=== PATIENT | male | born 1945 | race Caucasian/White ===

== ENCOUNTER → 2018-01-16 | Outpatient (CLI) | payer MEDICARE, BC, OTHER ==
--- NOTE | 2018-01-16 13:43 | XR ---
EXAMINATION TYPE: XR chest 2V DATE OF EXAM: 01/16/2018 COMPARISON: NONE TECHNIQUE: PA and lateral views submitted. HISTORY: Preop FINDINGS: The lungs are clear and there is no pneumothorax, pleural effusion, or focal pneumonia. Hypertrophi c and degenerative change of the vertebral column. No overt failure. IMPRESSION: 1. No acute process.
[2018-01-16 13:47] LABS: INR 1.2 (<1.2); Partial Thromboplastin Time 23.9 sec (22.0-30.0); Prothrombin Time 11.4 sec (9.0-12.0)
[2018-01-16 13:48] LABS: Appearance,Urine Clear (Clear); Bilirubin,Urine Negative (Negative); Blood,Urine Negative (Negative); Color,Urine Yellow; Glucose,Urine (UA) Negative (Negative); Ketones,Urine Negative (Negative); Leukocyte Esterase,Urine Negative (Negative); Nitrite,Urine Negative (Negative); Protein,Urine Negative (Negative); Specific Gravity,Urine 1.015 (1.001-1.035); Urobilinogen,Urine <2.0 mg/dL (<2.0)
[2018-01-16 13:50] LABS: Basophils # (A) 0.1 k/uL (0-0.2); Basophils % (A) 1 %; Eosinophils # (A) 0.1 k/uL (0-0.7); Eosinophils % (A) 2 %; HCT 45.1 % (39.0-53.0); HGB 14.9 gm/dL (13.0-17.5); Lymphocytes % (A) 19 %; MCH 31.9 pg (25.0-35.0); MCV 96.8 fL (80.0-100.0); Mean Platelet Volume 7.5; Monocytes # (A) 0.3 k/uL (0-1.0); Monocytes % (A) 6 %; Neutrophils # (A) 3.5 k/uL (1.3-7.7); Neutrophils % (A) 70 %; Platelet Count 249 k/uL (150-450); RBC 4.66 m/uL (4.30-5.90); RDW 12.7 % (11.5-15.5)
[2018-01-16 13:54] LABS: Anion Gap 4 mmol/L; Blood Urea Nitrogen 19 mg/dL (9-20); Calcium 9.5 mg/dL (8.4-10.2); Carbon Dioxide 30 mmol/L (22-30); Chloride 106 mmol/L (98-107); Glucose 90 mg/dL (74-99); Potassium 4.7 mmol/L (3.5-5.1); Sodium 140 mmol/L (137-145)
== END ==
LOC: LABPAT 12:34
PROVIDERS: ATTEND Orthopaedic Surgery Orthopaedic Surgery of the Spine
DX: Z01.818 Encounter for other preprocedural examination (principal); Z01.812 Encounter for preprocedural laboratory examination; M48.02 Spinal stenosis, cervical region; G95.89 Other specified diseases of spinal cord
CPT/HCPCS: 36415; 71046; 80048; 81003; 85025; 85610; 85730; 86850; 86900; 86901; 93005

== ENCOUNTER 2018-01-22 12:15 | Inpatient (IN) | payer MEDICARE, BC ==
[~2018-01-22 12:15] MED LIST: BACITRACIN 50,000 UNIT, POLYMYXIN B 500,000 UNIT in SODIUM CHLORIDE 0.9% IRRIGATIO 1,00... IRRIGATION ONE; DEXAMETHASONE SOD PHOSPHATE 10 MG/ML 1 ML VIAL IV ONE; LIDOCAINE 1% 20 ML VIAL (10MG/ML) FOR IV START INTRADERMA PRN; MIDAZOLAM 2 MG/2 ML VIAL IV PRN; ONDANSETRON 4 MG/2 ML VIAL IVP ONE; ceFAZolin IN SWFI 2 GM/20 ML SYRINGE IVP ONE; fentaNYL (PF) 50 MCG/ML 2 ML AMP IV PRN
[2018-01-22] MEDS: LACTATED RINGERS 1,000 ML IV SCH ×2 (13:33→22:35)
[2018-01-22 13:41] LABS: Glucose,Whole Blood 96 mg/dL (75-99)
[2018-01-22] MEDS ORDERED: PROPOFOL 10 MG/ML 20 ML VIAL IV ONE (15:38)
[2018-01-22] MEDS ORDERED: ePHEDrine SULFATE/0.9% NACL/PF 50 MG/5 ML SYRINGE IV ONE (15:38)
[2018-01-22] MEDS ORDERED: LIDOCAINE 1% INJ 10MG/ML (20 ML MDV) ONE (15:38)
[2018-01-22] MEDS ORDERED: fentaNYL (PF) 50 MCG/ML 2 ML AMP ONE (15:38)
[2018-01-22] MEDS ORDERED: SUCCINYLCHOLINE CHLORIDE 100 MG/5 ML SYR IV ONE (15:38)
[2018-01-22] MEDS ORDERED: DEXAMETHASONE SOD PHOS (MDV) 100 MG/10 ML VIAL ONE (15:38)
[2018-01-22] MEDS ORDERED: MIDAZOLAM 2 MG/2 ML VIAL ONE (15:38)
[2018-01-22] MEDS ORDERED: LIDOCAINE 0.5%-EPI 1:200,000 50 ML VIAL SQ ONE ×2 (16:30)
[2018-01-22] MEDS ORDERED: THROMBIN (BOVINE) 5,000 UNIT VIAL MISCELLANE ONE (16:35)
[2018-01-22] MEDS ORDERED: GELATIN SPONGE,ABSORB (LARGE) 1 EACH SPONGE MISCELLANE ONE (16:35)
[2018-01-22] MEDS ORDERED: LACTATED RINGERS 1,000 ML IV ONE (17:53)
[2018-01-22] MEDS ORDERED: MAGNESIUM HYDROXIDE 2,400 MG/10 ML CUP PO PRN (18:00)
[2018-01-22] MEDS ORDERED: BENZOCAINE/MENTHOL LOZENG 1 EACH LOZENGE MUCOUS MEM PRN (18:00)
[2018-01-22] MEDS ORDERED: HYDROmorphone 1 MG/ML 1 ML SYRINGE IVP PRN (18:00)
[2018-01-22] MEDS ORDERED: ACETAMINOPHEN TAB 325 MG TAB PO PRN (18:00)
[2018-01-22] MEDS ORDERED: ONDANSETRON 4 MG/2 ML VIAL IVP PRN (18:00)
--- NOTE | 2018-01-22 18:08 | P.OP ---
Date of Procedure: 01/22/18 Preoperative Diagnosis: Cervical myelopathy with central cord syndrome Cervical myelomalacia Severe cervical stenosis C3 4 Cervical stenosis C4 5 Degenerative disc disease Bilateral upper extremity weakness Gait dysfunction due to cervical myelopathy Postoperative Diagnosis: Same Anesthesia: GETA Pathology: none sent Condition: stable Disposition: PACU Description of Procedure: BRIEF OPERATIVE NOTE Preoperative Diagnosis:Cervical myelopathy with central cord syndrome Cervical myelomalacia Severe cervical stenosis C3 4 Cervical stenosis C4 5 Degenerative disc disease Bilateral upper extremity weakness Gait dysfunction due to cervical myelopathy Postoperative Diagnosis: Same Procedure: Anterior cervical decompression with discectomy and fusion C3 4 C4 5 Placement of interbody graft C3 4 C4 5 Application of anterior cervical plate C3 4 5 Surgeon: Dr. Ash Clinical Project Assistant: Danny ZULUAGA who is present throughout the entire the case persistence during positioning, dissection, exposure, visualization, and all crucial elements of the case as well as closure. Anesthesia: General anesthesia Estimated blood loss: 100 mL Complications: None apparent Components implanted: K2M [place] anterior cervical plate system with 6 screws and Vikos interbody allograft bone graft, 1 mL of DBX bone putty supplement the bone graft and 1 mL of Tisseel Disposition: To recovery room in good stable condition. OPERATIVE INDICATIONS The patient has had long-standing issues in their neck and upper extremities. He was having acute worsening at his upper extremities and with his gait and showed evidence of acute myelopathy and cervical myelomalacia with central cord syndrome. He is having significant weakness and dysfunction in his bilateral hands and significant gait dysfunction as well trouble with his balance and coordination in function in his upper extremities bilaterally. The patient has been through conservative treatment without any benefit. He is having progressive worsening and was found have obvious severe stenosis at C3 4 and stenosis C4 5 with degenerative changes C5 6 and C6 7. There is evidence of myelomalacia behind C3 4 which correlated well with his symptoms. We discussed various treatment options including surgery, and the patient wishes to proceed with surgery. We discussed the likelihood of having chronic changes in his upper and lower extremities and chronic changes with his myelopathy. We discussed the risk, patient's alternatives and benefits of surgery including but not limited to, risk of bleeding risk of infection, risk of need for further surgery, risk of decreased, loss of motion, muscle function, malunion nonunion, hardware failure, nerve damage, paralysis, heart attack, and . OPERATIVE SUMMARY After discussing all the risks, patient alternatives and benefits at length, the patient elected to proceed with surgical intervention, signed informed consent, and presented for their procedure. The patient was seen and examined in the preoperative holding area and the surgical site was marked. The patient was given antibiotics and brought to the operating room. The patient was positioned on the operating room table in a supine position being careful to pad any bony prominences and pressure points. The patient was sedated and intubated by anesthesia in standard fashion. Once the airway and C- spine were stabilized the patient's arms were padded and tucked at her side, with her shoulders gently taped. The head was placed in a donut pad with the neck in good neutral alignment and position. We were careful to maintain the patient's cervical spine and good neutral alignment and position throughout. The patient was prepped and draped in a normal standard fashion. An appropriate timeout and keystone protocol performed. We were able to proceed with the surgery. The local wound area was infiltrated with local anesthetic. An incision was made transversely approximately 2-1/2 cm over the appropriate levels at C4. Dissection was taken down subcutaneously to the level of the platysma which was split in line with its fibers. Dissection was taken with a carotid approach, with the trachea and esophagus medial and the carotid sheath laterally. We dissected down to the anterior surface of the vertebral bodies at C5 3 4 and 5. Intraoperative x-ray was taken which showed a marker at the appropriate level at C3 4. With the appropriate level positively confirmed, we were able to proceed with discectomy at the appropriate levels starting at C3 4 and then moving C4 5. All of the operative levels were exposed appropriately. The patient had all their twitches back, and there was no evidence of recurrent laryngeal issue. The wound was copiously irrigated and suctioned dry as had been done periodically throughout the case. At the appropriate level/levels, I established an annulotomy with an 11 blade scalpel. A discectomy was performed with a combination of pituitary rongeurs, curettes, a high-speed bur, and Kerrison rongeurs. The posterior longitudinal ligament was taken down as were any posterior osteophytes. There is evidence of severe posterior osteophytes and posterior disc protrusion causing severe stenosis particularly at C3 4 but also at C4 5 centrally in the bilateral neural foramen. This was taken down and remedied with the decompression and discectomy. This gave good central and bilateral foraminal decompression. There is no evidence of any dural tear or leak. There is a small abrasion less than 1 mm at C4-5 over the dura mater without any evidence of leakage. I decided place a small amount of Tisseel over this. The endplates were prepared with a high-speed bur. With the endplates in good parallel position, I was able to size for the appropriate size interbody graft. The wound was irrigated and suctioned dry the graft was prepared and malleted into position. It had good alignment and position with the anterior surface flush with the anterior surface of the vertebral bodies. This was done similarly the appropriate levels at C3 4 and C4 5. With the grafts intact, I was able to measure and contour and appropriate sized plate. The plate was positioned at the midline over the appropriate levels at C3 4 and 5. Screw holes were established with a hand drill and drill guide. Screws were placed in good alignment and position with excellent bony purchase. They were seated under the locking device. The construct was checked and found to be stable. Intraoperative x-ray was taken which showed good alignment and position of the implants at the appropriate levels. There was no evidence of any dural tear or leak. Good hemostasis was maintained. The wound was copiously irrigated and suctioned dry as had been done periodically throughout the case. The platysma was closed with absorbable suture. The subcutaneous tissue was closed. The subcuticular tissue was closed with absorbable suture. The wound was cleaned and dried and dressed appropriately. A soft cervical collar was placed appropriately. The patient was woken up by anesthesia, extubated, transferred back gently to their hospital bed and brought to the recovery room in good stable condition. The patient will be admitted to the hospital for appropriate postoperative care , medical management and monitoring. We will continue to follow them closely about the postoperative course.
[2018-01-22] MEDS: HYDROmorphone 0.5 MG/0.5 ML SYRINGE IVP PRN ×2 (18:32→18:39)
--- NOTE | 2018-01-22 19:02 | XR ---
EXAMINATION TYPE: XR cervical spine 1V DATE OF EXAM: 01/22/2018 COMPARISON: Today HISTORY: Postop TECHNIQUE: Single view FINDINGS: There is a plate with screws fusing anteriorly the cervical spine from C3 to C5. There is b one graft at the disc spaces. Vertebra have normal alignment. IMPRESSION: No complicating process seen.
--- NOTE | 2018-01-22 19:03 | XR ---
EXAMINATION TYPE: XR cervical spine 1V DATE OF EXAM: 01/22/2018 COMPARISON: NONE HISTORY: Needle placement TECHNIQUE: Single view FINDINGS: There is a needle with the tip overlying the disc space at C3-4. IMPRESSION: Needle at the C3-4 disc level.
[2018-01-22] MEDS: HYDROcodone/APAP 5-325MG 1 EACH TAB PO PRN (20:46)
[2018-01-22 21:47] VITALS: BMI 27.0
[2018-01-22] MEDS: ceFAZolin IN SWFI 2 GM/20 ML SYRINGE IVP SCH (23:35)
[2018-01-22] MEDS: SODIUM CHLORIDE 0.9% 1,000 ML IV SCH (23:39)
[2018-01-23 00:09] VITALS: TEMP 98.1
[2018-01-23 04:51] VITALS: BP 101/50; PULSE 62
[2018-01-23] MEDS: HYDROcodone/APAP 5-325MG 1 EACH TAB PO PRN (07:37)
[2018-01-23] MEDS: SODIUM CHLORIDE 0.9% 1,000 ML IV SCH (08:25)
[2018-01-23] MEDS: ceFAZolin IN SWFI 2 GM/20 ML SYRINGE IVP SCH (08:29)
--- NOTE | 2018-01-23 08:43 | P.DS ---
Providers Date of admission: 01/22/18 12:45 Expected date of discharge: 01/23/18 Attending physician: Tylor Ash Primary care physician: Noe Benson MD - Discharge Diagnosis(es) (1) Central cord syndrome Current Visit: Yes Status: Acute (2) Cervical cord myelomalacia Current Visit: Yes Status: Acute (3) Cervical spinal stenosis Current Visit: Yes Status: Acute (4) Degenerative disc disease, cervical Current Visit: Yes Status: Acute (5) Upper extremity weakness Current Visit: Yes Status: Acute (6) Cervical myelopathy Current Visit: Yes Status: Acute Hospital Course: This is a pleasant 73-year-old male who presented with cervical myelopathy with central cord syndrome, cervical myelomalacia, C3-4 severe cervical stenosis, C4- 5 cervical stenosis, cervical degenerative disc disease, bilateral upper extremity weakness, and gait dysfunction due to cervical myelopathy who failed outpatient conservative therapy. He was admitted for an anterior cervical decompression and fusion at C3 S4 and C4-5. The patient tolerated the procedure well and did well postoperatively. His family states they feel he has had better function of his hands already postoperatively. He is experiencing significant cervical pain. He does feel he is ready for discharge home. He was able to eat this morning without significant difficulty. Condition on day of discharge stable. Patient will be discharged home. Patient was cleared preoperatively for surgery by Dr. Noe Benson. Patient currently denies any nausea, vomiting, fever, or chills. Patient is eating and voiding freely without difficulty. Patient may shower Tegaderm dressing intact. Patient may remove Tegaderm dressing in 3 days and shower without a dressing at that time. Patient should keep Steri-Strips intact and allow them to fall off naturally. Patient should refrain from driving until at least after their first follow-up appointment in the office. Patient should avoid excessive neck flexion, extension, rotation, and lateral sidebending; no overhead lifting; no lifting greater than 10 pounds. Wear a soft cervical collar for comfort support as needed. An "Opiod Start Talking" form has been signed by Dr. Ash and the patient and placed in the patient's chart. A prescription for [place] 5 mg/325 mg 1-2 tabs every 6 hours as needed for pain, dispensed #24 has been transcribed to the pharmacy by Dr. Ash. Patient may finish previous prescribed prednisone taper but should avoid other anti- inflammatories over the next 6 weeks postoperatively. Physical Exam on day of discharge: Patient is awake, alert, and oriented 3 Vital signs stable Good chest excursion with deep inspiration and expiration Abdomen soft nontender No signs or symptoms of DVT; no calf pain Active range of motion of the cervical spine with adequate flexion, extension, and bilateral rotation Regulatory Attorney strength, biceps strength, triceps strength, and shoulder strength positive sustained bilaterally Evidence of myelopathic changes of the upper extremities Incision is clean, dry, and intact; no erythema, purulence, or signs of infection Tegaderm dressing and non-stick Telfa intact Procedures: C3-4 and C4-5 anterior cervical decompression and fusion Patient Condition at Discharge: Stable Plan - Discharge Summary Discharge Rx Participant: No New Discharge Prescriptions: New HYDROcodone/APAP 5-325MG [[place] 5] 1 - 2 each PO Q6HR PRN #24 tab PRN Reason: Severe Pain No Action Multivitamin [Men's Multi-Vitamin] 1 tab PO DAILY predniSONE 20 mg PO DIRECTED Aspirin [Adult Low Dose Aspirin EC] 81 mg PO DAILY Discharge Medication List Multivitamin [Men's Multi-Vitamin] 1 tab PO DAILY 05/01/15 [History] Aspirin [Adult Low Dose Aspirin EC] 81 mg PO DAILY 01/18/18 [History] predniSONE 20 mg PO DIRECTED 01/18/18 [History] HYDROcodone/APAP 5-325MG [[place] 5] 1 - 2 each PO Q6HR PRN #24 tab 01/22/18 [Rx] Follow up Appointment(s)/Referral(s): Tylor Ash DO [Doctor of Osteopathic Medicine] - 2 Weeks Patient Instructions/Handouts: *Surgery [facility] - ([facility]) Cervical Surgery Discharge Instructions, Hydrocodone/Acetaminophen (By mouth), Surgical Site Infections (DC) Activity/Diet/Wound Care/Special Instructions: -Keep wound site clean. -May shower with waterproof Tegaderm intact. Do not soak in a tub. -On Monday, may remove dressing and then may shower with area uncovered, but leave Steri-Strips intact and allow them to fray off on their own. *May ambulate to tolerance. *Avoid any overhead activity *Avoid any heavy or rigorous activity *No repetitive bending, twisting or lifting. *No lifting greater than 15 pounds. Discharge Disposition: HOME SELF-CARE
[2018-01-23] MEDS: LACTATED RINGERS 1,000 ML IV SCH (08:47)
[2018-01-23] MEDS ORDERED: ASPIRIN 81 MG PO SCH (09:00)
[2018-01-23] MEDS ORDERED: predniSONE 20 MG TAB PO SCH (09:00)
[2018-01-23 10:26] VITALS: RESP 18
[2018-01-23] MEDS ORDERED: MULTIVITAMINS, THERA 1 EACH TAB PO SCH (12:00)
--- NOTE | 2018-01-26 15:25 | CDI ---
Documentation Clarification Form Date: 01/26/2018 3:07:22 PM From: CARROLL Gaffney; Hortensia Barillas Geophysicist Phone: If you have a question about this query, please contact Hortensia Barillas Geophysicist at [phone] between 8am and 5pm. Admit Date: 01/22/2018 12:45:00 PM Patient Name: Mor Cabrera Visit Number: [id number] Discharge Date: 01/23/2018 ATTENTION: The Clinical Documentation Specialists (CDI) and [facility] Coding Staff appreciate your assistance in clarifying documentation. Please respond to the clarification below the line at the bottom and electronically sign. The CDI & [facility] Coding staff will review the response and follow-up if needed. Please note: Queries are made part of the Legal Health Record. If you have any questions, please contact the author of this message via ITS. Tylor Thompson., DO The patient presents for cervical spinal fusion. Preoperative diagnosis is cervical myelopathy with central cord syndrome. Central cord syndrome requires further clarification for accurate code assignment. In your professional opinion, can you please clarify ? Central cord syndrome is associated with current trauma? Central cord syndrome nontraumatic Posterior cord Anterior cord Other, please specify Unable to determine the patient shows signs and symptoms of central cord syndrome, nontraumatic. MTDD
== END 2018-01-23 10:05 | disposition home or self-care (01) | DRG 472 ==
LOC: 2ORMAIN 12:45 → 3NMEDONC 18:15
PROVIDERS: ADMIT Orthopaedic Surgery Orthopaedic Surgery of the Spine; ATTEND Orthopaedic Surgery Orthopaedic Surgery of the Spine
PROC: 0RB30ZZ Excision of Cervical Vertebral Disc, Open Approach (ICD-10-PCS; principal; 2018-01-22 14:45)
PROC: 0RG20K0 Fusion of 2 or more Cervical Vertebral Joints with Nonautologous Tissue Substitute, Anterior Approach, Anterior Column, Open Approach (ICD-10-PCS; principal; 2018-01-22 14:45)
DX: M50.01 Cervical disc disorder with myelopathy, high cervical region (principal); G95.89 Other specified diseases of spinal cord; G83.82 Anterior cord syndrome; M48.02 Spinal stenosis, cervical region; Z79.82 Long term (current) use of aspirin; M50.11 Cervical disc disorder with radiculopathy, high cervical region
CPT/HCPCS: 72020; 86850; 86900; 86901

== ENCOUNTER 2018-01-24 07:07 | Emergency (ER) | payer MEDICARE, BC ==
[2018-01-24 07:14] VITALS: TEMP 98.2
[2018-01-24] MEDS ORDERED: DEXAMETHASONE SOD PHOSPHATE 10 MG/ML 1 ML VIAL IV STA (07:37)
[2018-01-24] MEDS ORDERED: SODIUM CHLORIDE 0.9% 1,000 ML IV STA (07:37)
[2018-01-24 08:00] LABS: Basophils % (A) 0 %; Eosinophils # (A) 0.1 k/uL (0-0.7); Eosinophils % (A) 1 %; HCT 41.5 % (39.0-53.0); Lymphocytes # (A) 1.6 k/uL (1.0-4.8); Lymphocytes % (A) 16 %; MCH 32.5 pg (25.0-35.0); MCHC 33.6 g/dL (31.0-37.0); MCV 96.6 fL (80.0-100.0); Mean Platelet Volume 7.6; Monocytes # (A) 0.9 k/uL (0-1.0); Monocytes % (A) 9 %; Neutrophils # (A) 7.5 k/uL (1.3-7.7); Neutrophils % (A) 73 %; Platelet Count 226 k/uL (150-450); RDW 12.9 % (11.5-15.5); WBC 10.3 k/uL (3.8-10.6)
[2018-01-24] MEDS ORDERED: BUDESONIDE 0.5 MG/2 ML NEBU INHALATION STA (08:10)
[2018-01-24 08:19] LABS: ALT 25 U/L (21-72); AST 18 U/L (17-59); Albumin 3.4 g/dL (3.5-5.0); Alkaline Phosphatase 54 U/L (38-126); Anion Gap 6 mmol/L; Blood Urea Nitrogen 27 mg/dL (9-20); Calcium 9.1 mg/dL (8.4-10.2); Carbon Dioxide 28 mmol/L (22-30); Chloride 105 mmol/L (98-107); Glucose 91 mg/dL (74-99); Potassium 4.2 mmol/L (3.5-5.1); Sodium 139 mmol/L (137-145); Total Bilirubin 0.8 mg/dL (0.2-1.3); Total Protein 6.1 g/dL (6.3-8.2)
--- NOTE | 2018-01-24 08:21 | XR ---
EXAMINATION TYPE: XR chest 2V DATE OF EXAM: 01/24/2018 COMPARISON: Prior chest x-ray 01/16/2018 HISTORY: Difficulty breathing TECHNIQUE: Frontal and lateral views of the chest are obtained. FINDINGS: There are overlying cardiac leads. Cardiomediastinal silhouette, pulmonary vascularity and zulema are stable. No evident airspace disease, pneumothorax, or pleural effusion. Strand-like densiti es present at the posterior right lung base show similar appearance. Eventration of the hemidiaphragm s again noted. Suspect a mild pectus deformity. Aorta is dense. Spondylosis again noted within the sp ine. IMPRESSION: Suspect some basilar scarring or atelectasis, stable.
--- NOTE | 2018-01-24 08:23 | XR ---
Soft tissue neck HISTORY: Difficulty breathing 2 views of the neck Patient shows anterior cervical fusion and discectomy change at C3-C5. Below spondylosis is present. Bone mineralization is reduced. The airway is patent. Epiglottis shows a normal appearance in profile. No radiopaque foreign body geneva dent along the airway. Facet arthropathy changes are present. IMPRESSION: Degenerative disc disease. Patent airway.
[2018-01-24 08:31] LABS: Creatine Kinase 104 U/L (55-170)
--- NOTE | 2018-01-24 08:43 | ED ---
SOB HPI - General Chief Complaint: Shortness of Breath Stated Complaint: PALAK Time Seen by Provider: 01/24/18 07:14 Source: patient, RN notes reviewed, old records reviewed Mode of arrival: wheelchair Limitations: physical limitation - History of Present Illness Initial Comments: This is a 71-year-old male to the ER for evaluation of shortness of breath. Patient has shortness of breath and trying to sleep the last 2 days. He does have underlying sleep apnea, and history of recent cervical spine surgery with discectomy. Patient states he feels agrees lays down to sleep at night he can' t breathe and he chokes on his own mucus and secretions. Patient denies any chest pain, patient denies any current shortness of breath MD Complaint: shortness of breath, cough, anxiety -: days(s) (2) Improves With: upright position Worsens With: lying flat Associated Symptoms: cough - Related Data Home Medications Medication Instructions Recorded Confirmed Multivitamin [Men's Multi-Vitamin] 1 tab PO DAILY 05/01/15 01/24/18 Aspirin [Adult Low Dose Aspirin EC] 81 mg PO DAILY 01/18/18 01/24/18 predniSONE See Taper PO DIRECTED 01/18/18 01/24/18 HYDROcodone/APAP 5-325MG [[place] 5] 1 - 2 tab PO Q6HR PRN 01/24/18 01/24/18 Allergies Allergy/AdvReac Type Severity Reaction Status Date / Time No Known Allergies Allergy Verified 01/24/18 07:38 Review of Systems ROS Statement: Those systems with pertinent positive or pertinent negative responses have been documented in the HPI. ROS Other: All systems not noted in ROS Statement are negative. Past Medical History Past Medical History: Osteoarthritis (OA), Sleep Apnea/CPAP/BIPAP Additional Past Medical History / Comment(s): "HX MITRAL VALVE malfunctioning." HX RETINA TEAR, "slight sleep apnea"- no cpap used, degenerative disks, spinal stenosis,, History of Any Multi-Drug Resistant Organisms: None Reported Past Surgical History: Heart Catheterization, Hernia Repair, Orthopedic Surgery , Tonsillectomy Additional Past Surgical History / Comment(s): RT RETINA REPAIR. trigger finger deandre hands, rt knee arthroscopy, carpal tunnel deandre, deandre cataracts, C3-C6 removed, Past Anesthesia/Blood Transfusion Reactions: No Reported Reaction Past Psychological History: No Psychological Hx Reported Smoking Status: Never smoker Past Alcohol Use History: Rare Past Drug Use History: None Reported - Past Family History Mother Family Medical History: No Reported History Additional Family Medical History / Comment(s): . General Exam Limitations: physical limitation General appearance: alert, in no apparent distress Head exam: Present: atraumatic, normocephalic, normal inspection Eye exam: Present: normal appearance, PERRL, EOMI. Absent: scleral icterus, conjunctival injection, periorbital swelling ENT exam: Present: normal exam, mucous membranes moist Neck exam: Present: normal inspection. Absent: tenderness, meningismus, lymphadenopathy Respiratory exam: Present: normal lung sounds bilaterally. Absent: respiratory distress, wheezes, rales, rhonchi, stridor Cardiovascular Exam: Present: regular rate, normal rhythm, normal heart sounds. Absent: systolic murmur, diastolic murmur, rubs, gallop, clicks GI/Abdominal exam: Present: soft, normal bowel sounds. Absent: distended, tenderness, guarding, rebound, rigid Extremities exam: Present: normal inspection, full ROM, normal capillary refill. Absent: tenderness, pedal edema, joint swelling, calf tenderness Back exam: Present: normal inspection Neurological exam: Present: alert, oriented X3, CN II-XII intact Psychiatric exam: Present: normal affect, normal mood Skin exam: Present: warm, dry, intact, normal color. Absent: rash Course Vital Signs 01/24/18 01/24/18 01/24/18 07:11 07:30 07:40 Temperature 98.2 F Pulse Rate 73 61 Respiratory 20 42 H Rate Blood Pressure 111/61 115/74 O2 Sat by Pulse 97 99 Oximetry 01/24/18 01/24/18 01/24/18 07:50 08:00 08:19 Temperature Pulse Rate 56 L 58 L 56 L Respiratory 10 L 13 14 Rate Blood Pressure 118/101 118/101 O2 Sat by Pulse 97 Oximetry 01/24/18 01/24/18 01/24/18 08:20 08:22 08:30 Temperature Pulse Rate 54 L 58 L 55 L Respiratory 6 L 14 8 L Rate Blood Pressure 121/102 121/102 O2 Sat by Pulse 98 95 Oximetry 01/24/18 01/24/18 01/24/18 08:40 08:50 09:00 Temperature Pulse Rate 60 60 56 L Respiratory 16 20 18 Rate Blood Pressure 125/80 113/76 113/76 O2 Sat by Pulse 93 L 94 L 93 L Oximetry 01/24/18 01/24/18 01/24/18 09:10 09:20 09:30 Temperature Pulse Rate 53 L 53 L 52 L Respiratory 14 12 14 Rate Blood Pressure 104/75 107/74 107/74 O2 Sat by Pulse 96 94 L 93 L Oximetry 01/24/18 01/24/18 01/24/18 09:40 09:50 10:00 Temperature Pulse Rate 53 L 54 L Respiratory 13 14 Rate Blood Pressure 106/73 104/67 104/67 O2 Sat by Pulse 95 95 Oximetry 01/24/18 01/24/18 01/24/18 10:10 10:20 10:30 Temperature Pulse Rate 60 61 80 Respiratory 18 6 L 9 L Rate Blood Pressure 121/96 101/75 101/75 O2 Sat by Pulse 96 96 94 L Oximetry 01/24/18 01/24/18 01/24/18 10:40 10:50 11:00 Temperature Pulse Rate 55 L 56 L 59 L Respiratory 10 L 13 7 L Rate Blood Pressure 103/75 96/70 96/70 O2 Sat by Pulse 94 L 92 L 94 L Oximetry 01/24/18 01/24/18 01/24/18 11:10 11:20 11:30 Temperature Pulse Rate 58 L 55 L 63 Respiratory 15 11 L 12 Rate Blood Pressure 105/76 105/77 105/77 O2 Sat by Pulse 95 93 L 93 L Oximetry 01/24/18 12:44 Temperature Pulse Rate 64 Respiratory 18 Rate Blood Pressure 106/75 O2 Sat by Pulse Oximetry - Reevaluation(s) Reevaluation #1: 01/24/18 13:17 Patient's medical record is reviewed Dr. Ash and associate did come and evaluate patient here in the emergency room Reevaluation #2: 01/24/18 13:18 Patient is doing improved on his normal CPAP Reevaluation #3: 01/24/18 14:08 A she was seen by Dr. Garsia here in the ER, still for discharge home with no shortness of breath laying down on CPAP Medical Decision Making - Medical Decision Making 73 female the ER for evaluation cough congestion recent operative procedure, patient having shortness of breath. Patient can be discharged home - Lab Data Result diagrams: 01/24/18 07:40 01/24/18 07:40 Lab Results 01/24/18 01/24/18 01/24/18 Range/Units 07:40 07:40 07:40 WBC 10.3 (3.8-10.6) k/uL RBC 4.30 (4.30-5.90) m/uL Hgb 14.0 (13.0-17.5) gm/dL Hct 41.5 (39.0-53.0) % MCV 96.6 (80.0-100.0) fL MCH 32.5 (25.0-35.0) pg MCHC 33.6 (31.0-37.0) g/dL RDW 12.9 (11.5-15.5) % Plt Count 226 (150-450) k/uL Neutrophils % 73 % Lymphocytes % 16 % Monocytes % 9 % Eosinophils % 1 % Basophils % 0 % Neutrophils # 7.5 (1.3-7.7) k/uL Lymphocytes # 1.6 (1.0-4.8) k/uL Monocytes # 0.9 (0-1.0) k/uL Eosinophils # 0.1 (0-0.7) k/uL Basophils # 0.0 (0-0.2) k/uL Sodium 139 (137-145) mmol/L Potassium 4.2 (3.5-5.1) mmol/L Chloride 105 (98-107) mmol/L Carbon Dioxide 28 (22-30) mmol/L Anion Gap 6 mmol/L BUN 27 H (9-20) mg/dL Creatinine 0.76 (0.66-1.25) mg/dL Est GFR (CKD-EPI)AfAm >90 (>60 ml/min/1.73 sqM) Est GFR (CKD-EPI)NonAf >90 (>60 ml/min/1.73 sqM) Glucose 91 (74-99) mg/dL Calcium 9.1 (8.4-10.2) mg/dL Magnesium 2.0 (1.6-2.3) mg/dL Total Bilirubin 0.8 (0.2-1.3) mg/dL AST 18 (17-59) U/L ALT 25 (21-72) U/L Alkaline Phosphatase 54 (38-126) U/L Total Creatine Kinase 104 (55-170) U/L CK-MB (CK-2) 3.2 H (0.0-2.4) ng/mL CK-MB (CK-2) Rel Index 3.1 Troponin I <0.012 (0.000-0.034) ng/mL NT-Pro-B Natriuret Pep pg/mL Total Protein 6.1 L (6.3-8.2) g/dL Albumin 3.4 L (3.5-5.0) g/dL 01/24/18 Range/Units 07:40 WBC (3.8-10.6) k/uL RBC (4.30-5.90) m/uL Hgb (13.0-17.5) gm/dL Hct (39.0-53.0) % MCV (80.0-100.0) fL MCH (25.0-35.0) pg MCHC (31.0-37.0) g/dL RDW (11.5-15.5) % Plt Count (150-450) k/uL Neutrophils % % Lymphocytes % % Monocytes % % Eosinophils % % Basophils % % Neutrophils # (1.3-7.7) k/uL Lymphocytes # (1.0-4.8) k/uL Monocytes # (0-1.0) k/uL Eosinophils # (0-0.7) k/uL Basophils # (0-0.2) k/uL Sodium (137-145) mmol/L Potassium (3.5-5.1) mmol/L Chloride (98-107) mmol/L Carbon Dioxide (22-30) mmol/L Anion Gap mmol/L BUN (9-20) mg/dL Creatinine (0.66-1.25) mg/dL Est GFR (CKD-EPI)AfAm (>60 ml/min/1.73 sqM) Est GFR (CKD-EPI)NonAf (>60 ml/min/1.73 sqM) Glucose (74-99) mg/dL Calcium (8.4-10.2) mg/dL Magnesium (1.6-2.3) mg/dL Total Bilirubin (0.2-1.3) mg/dL AST (17-59) U/L ALT (21-72) U/L Alkaline Phosphatase (38-126) U/L Total Creatine Kinase (55-170) U/L CK-MB (CK-2) (0.0-2.4) ng/mL CK-MB (CK-2) Rel Index Troponin I (0.000-0.034) ng/mL NT-Pro-B Natriuret Pep 236 pg/mL Total Protein (6.3-8.2) g/dL Albumin (3.5-5.0) g/dL - EKG Data -: EKG Interpreted by Me (EKG shows sinus recurred 55, VT 180, QRS 90, QTC 388) EKG shows normal: sinus rhythm Rate: bradycardia - Radiology Data Radiology results: report reviewed (S x-ray x-ray soft tissue neck is negative) , image reviewed Disposition Clinical Impression: Cervical spinal stenosis, Post-op pain Disposition: ADMITTED IP TO THIS HOSP Condition: Fair Instructions: Laryngitis (ED) Is patient prescribed a controlled substance at d/c from ED?: No Referrals: Noe Benson MD [Primary Care Provider] - 1-2 days
[2018-01-24 08:44] LABS: Creatine Kinase MB 3.2 ng/mL (0.0-2.4); Troponin I <0.012 ng/mL (0.000-0.034)
[2018-01-24] MEDS ORDERED: MORPHINE SULFATE 4 MG/ML SYRINGE IVP STA ×2 (09:00→12:37)
--- NOTE | 2018-01-24 13:10 | P.CNOR ---
History of Present Illness - [facility] Consult date: 01/24/18 Consult reason: other History of present illness: Patient's a very pleasant 73-year-old gentleman accompanied by multiple family members in the emergency room. He underwent surgical intervention with our service on Monday the for his severe cervical myelopathy and cervical stenosis. He feels that he has made good improvement in terms of his upper extremities and his ambulation and his coordination but he has had great difficulty with his breathing when he tries to lay back. He says that he is unable to sleep as he starts to get a feeling of gasping for air when he lays back. He says that he has a history of sleep apnea and has been prescribed a CPAP machine but he never uses a CPAP machine as he does not like it. He says that he was able to control his breathing for sleeping by laying on his stomach in a prone position which he is not able to do now since his surgery. He says that prior to surgery he was having trouble when laying back with the feeling of gasping for air and waking up. He says it is similar to the feelings he has now. He has a CPAP machine at home but does not use it. He denies any new changes and upper extremities or lower extremity. Denies any chest pain. He denies any fevers chills. He says he is tolerating his soft diet adequately at home. Review of Systems As per HPI he denies any chest pain. Denies any upper extremity worsening. He feels that his upper extremity surgery improved since his surgery. He feels that his legs have improved since his surgery. He is tolerating his soft diet adequately. He is not having any problems with his wound. Past Medical History Past Medical History: Osteoarthritis (OA), Sleep Apnea/CPAP/BIPAP Additional Past Medical History / Comment(s): "HX MITRAL VALVE malfunctioning." HX RETINA TEAR, "slight sleep apnea"- no cpap used, degenerative disks, spinal stenosis,, History of Any Multi-Drug Resistant Organisms: None Reported Past Surgical History: Heart Catheterization, Hernia Repair, Orthopedic Surgery , Tonsillectomy Additional Past Surgical History / Comment(s): RT RETINA REPAIR. trigger finger deandre hands, rt knee arthroscopy, carpal tunnel deandre, deandre cataracts, C3-C6 removed, Past Anesthesia/Blood Transfusion Reactions: No Reported Reaction Past Psychological History: No Psychological Hx Reported Smoking Status: Never smoker Past Alcohol Use History: Rare Past Drug Use History: None Reported - Past Family History Mother Family Medical History: No Reported History Additional Family Medical History / Comment(s): . Medications and Allergies Home Medications Medication Instructions Recorded Confirmed Type Multivitamin [Men's Multi-Vitamin] 1 tab PO DAILY 05/01/15 01/24/18 History Aspirin [Adult Low Dose Aspirin EC] 81 mg PO DAILY 01/18/18 01/24/18 History predniSONE See Taper PO DIRECTED 01/18/18 01/24/18 History HYDROcodone/APAP 5-325MG [Coeymans 5] 1 - 2 tab PO Q6HR PRN 01/24/18 01/24/18 History Allergies Allergy/AdvReac Type Severity Reaction Status Date / Time No Known Allergies Allergy Verified 01/24/18 07:38 Physical Examination Osteopathic Statement: *. No significant issues noted on an osteopathic structural exam other than those noted in the History and Physical/Consult. - C Spine: dermatomal strength & reflexes bilateral Shoulder strength: flexion: 3/5 (At his neck his incision site is clean and dry. There is no drainage there is no swelling his neck is supple and soft. There is no hematoma there is no tense mass.) Results - Labs Labs: Abnormal Lab Results - Last 24 Hours (Table) 01/24/18 01/24/18 Range/Units 07:40 07:40 BUN 27 H (9-20) mg/dL CK-MB (CK-2) 3.2 H (0.0-2.4) ng/mL Total Protein 6.1 L (6.3-8.2) g/dL Albumin 3.4 L (3.5-5.0) g/dL H & H 01/24/18 Range/Units 07:40 Hgb 14.0 (13.0-17.5) gm/dL Hct 41.5 (39.0-53.0) % Result Diagrams: 01/24/18 07:40 01/24/18 07:40 - Diagnostic results Cervical AP/lateral x-ray: report reviewed, image reviewed (X-rays of the cervical spine show a anterior cervical plate and interbody spacers at C3 4 and 5 in good alignment and good position. There is been no change since his surgical imaging. He does have disc degeneration C5 6 C6 7. This is stable.) Assessment and Plan Assessment: Sleep apnea shortness of breath. 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 He was able to circumvent these type of issue before his surgery as he was able to lay on his stomach but it is not available for him to lay on his stomach at this point with his recent cervical fusion. I think that he should try his CPAP machine which he will use family will obtain from home to see if this is adequate for him here in the emergency room. I do not think that he is probably having problems with his wound site or with swelling around his wound site. He has some mild soft tissue swelling but this is not causing his shortness of breath specifically. The hardware remains stable. I think that is if he does well with his CPAP machine in the emergency middle be okay for him be discharged home with close follow-up. His myelopathy appears to be improving to some degree with his surgery and I think he should continue his medication and regular local wound care and plan for follow-up with our service as scheduled and possibly 1-2 weeks.
[2018-01-24 14:27] VITALS: BP 116/66; PULSE 57; RESP 15
== END 2018-01-24 14:20 | disposition other institution (70) ==
LOC: EC 07:07
DX: M48.02 Spinal stenosis, cervical region (principal); G89.18 Other acute postprocedural pain; F41.9 Anxiety disorder, unspecified; R06.02 Shortness of breath; R05 Cough; G47.30 Sleep apnea, unspecified; Z99.89 Dependence on other enabling machines and devices; Z86.79 Personal history of other diseases of the circulatory system; Z98.890 Other specified postprocedural states; Z95.818 Presence of other cardiac implants and grafts; Z79.82 Long term (current) use of aspirin; Z79.52 Long term (current) use of systemic steroids
CPT/HCPCS: 36415; 94640; 93005; 83880; 80053; 82550; 82553; 83735; 84484; 85025; 70360; 71046; 99285; 96374; 96375; 96376; 96361 ×6; J2270; J1100

== ENCOUNTER 2021-09-07 09:58 | Day surgery (SDC) | payer MEDICARE ==
[2021-09-06 13:19] VITALS: BMI 26.5
[~2021-09-07 09:58] MED LIST changes: -BACITRACIN 50,000 UNIT, POLYMYXIN B 500,000 UNIT in SODIUM CHLORIDE 0.9% IRRIGATIO 1,00... IRRIGATION ONE; -DEXAMETHASONE SOD PHOSPHATE 10 MG/ML 1 ML VIAL IV ONE; +LACTATED RINGERS 1,000 ML IV SCH; +LIDOCAINE 1% (10MG/ML) FOR IV START INTRADERMA PRN; -LIDOCAINE 1% 20 ML VIAL (10MG/ML) FOR IV START INTRADERMA PRN; -MIDAZOLAM 2 MG/2 ML VIAL IV PRN; -ONDANSETRON 4 MG/2 ML VIAL IVP ONE; -ceFAZolin IN SWFI 2 GM/20 ML SYRINGE IVP ONE; -fentaNYL (PF) 50 MCG/ML 2 ML AMP IV PRN
[2021-09-07 10:51] VITALS: RESP 16; TEMP 97.7
[2021-09-07] MEDS ORDERED: PROPOFOL 10 MG/ML 20 ML VIAL IV ONE (11:44)
--- NOTE | 2021-09-07 12:04 | P.PCN ---
Date of Procedure: 09/07/21 Procedure(s) Performed: BRIEF HISTORY: Patient is a 76-year-old pleasant white male scheduled for an elective colonoscopy as a part of screening for colorectal neoplasia. Last colonoscopy was 10 years ago. PROCEDURE PERFORMED: Colonoscopy. PREOPERATIVE DIAGNOSIS: Screening for colon cancer. IV sedation per Anesthesia. PROCEDURE: After informed consent was obtained, the patient, was brought into the endoscopy unit. IV sedation was administered by Anesthesia under continuous monitoring. Digital rectal examination was normal. Initially the Olympus CF-160 flexible video colonoscope was then inserted in the rectum, gradually advanced into the cecum without any difficulty. Careful examination was performed as the scope was gradually being withdrawn. Ileocecal valve and the appendiceal orifice were visualized and appeared normal. Prep was fair. Mucosa of the cecum, ascending colon, transverse colon, descending colon, sigmoid colon, and rectum appeared normal. Retroflexion was performed in the rectum and monitor hemorrhoids were seen. Scattered sigmoid diverticulosis seen. The patient to lerated the procedure well. IMPRESSION: Normal-appearing colon from rectum to cecum no evidence of colorectal neoplasia. Scattered sigmoid diverticulosis small internal hemorrhoids RECOMMENDATIONS: Findings of this examination were discussed with the patientas well as his family. He was advised to have a repeat screening colonoscopy in 10 years].
[2021-09-07 12:27] VITALS: BP 130/79; PULSE 57
== END 2021-09-07 12:45 | disposition home or self-care (01) ==
LOC: ORWHC2ENDO 09:58
PROVIDERS: ATTEND Internal Medicine Gastroenterology
DX: Z12.11 Encounter for screening for malignant neoplasm of colon (principal); K57.30 Diverticulosis of large intestine without perforation or abscess without bleeding; K64.8 Other hemorrhoids
CPT/HCPCS: G0121; J2704

== ENCOUNTER → 2022-07-25 | Outpatient (CLI) | payer MEDICARE ==
[2022-07-25 15:00] LABS: INR 1.1 (<1.2)
[2022-07-25 15:01] LABS: Partial Thromboplastin Time 23.6 sec (22.0-30.0); Prothrombin Time 11.5 sec (9.0-12.0)
[2022-07-25 19:55] LABS: Appearance,Urine Clear (Clear); Bilirubin,Urine Negative (Negative); Blood,Urine Negative (Negative); Color,Urine Yellow (Yellow); Ketones,Urine Trace mg/dL (Negative); Nitrite,Urine Negative (Negative); PH, Urine 6.5 (5.0-8.0); Specific Gravity,Urine 1.025 (1.001-1.030)
[2022-07-25 19:56] LABS: Bacteria,Urine None Seen /HPF (None Seen)
[2022-07-25 21:25] LABS: HCT 46.5 % (39.6-50.0); HGB 15.4 g/dL (13.0-17.0); MCH 31.9 pg (27.0-32.0); MCHC 33.1 g/dL (32.0-37.0); MCV 96.3 fL (80.0-97.0); Mean Platelet Volume 10.1 fL (9.5-12.2); NRBC Per 100 WBC 0 /100 WBCS (0.0-0.0); Platelet Count 314 X 10*3/uL (140-440); RBC 4.83 X 10*6/uL (4.40-5.60); RDW 13.4 % (11.5-14.5)
[2022-07-25 22:21] LABS: African American GFR (CKD) 84.4 (60.0-200.0); Albumin 4.5 g/dL (3.8-4.9); Albumin/Globulin Ratio 1.8 (1.60-3.17); Anion Gap 7.8 mmol/L (10.00-18.00); BUN/Creat Ratio 25.1 Ratio (12.00-20.00); Blood Urea Nitrogen 25.1 mg/dL (9.0-27.0); Calcium 9.7 mg/dL (8.7-10.3); Carbon Dioxide 28.2 mmol/L (20.0-27.5); Globulin 2.5 g/dL (1.6-3.3); Non-African American GFR(CKD) 72.8 (60.0-200.0); Potassium 4.9 mmol/L (3.5-5.5); Total Bilirubin 0.7 mg/dL (0.30-1.20)
== END | disposition home or self-care (01) ==
LOC: LABPAT 13:38
PROVIDERS: ATTEND Orthopaedic Surgery
DX: Z01.812 Encounter for preprocedural laboratory examination (principal); M17.11 Unilateral primary osteoarthritis, right knee
CPT/HCPCS: 80053; 81001; 85027; 85610; 85730; 87070

== ENCOUNTER → 2022-07-25 | Outpatient (CLI) | payer MEDICARE ==
--- NOTE | 2022-07-25 13:45 | CT ---
EXAMINATION TYPE: CT right knee - [facility] Protocol CT DLP: 707 mGycm, Automated exposure control for dose reduction was used. DATE OF EXAM: 07/25/2022 1:39 PM COMPARISON: CLINICAL INDICATION:Male, 77 years old with history of M25.561 pain R knee; PHH, NATASHA right knee. TECHNIQUE: Axial images were obtained of the right knee . Additional coronal and sagittal reformatte d images and soft tissue and bone window were obtained for review. Contrast used: None Oral contrast used: None FINDINGS: There is no evidence of fracture, subluxation, or dislocation. No significant soft tissue swelling. Small right knee joint effusion no focal muscular atrophy or edema is identified. Degenerat ion changes of the bilateral hips with osteophyte formation. The right knee demonstrates tricompartme ntal severe osteoarthrosis changes with chondrocalcinosis, osteophyte formation and joint space narro wing. Partially visualized left knee also demonstrates similar features.. IMPRESSION: 1. Severe right knee osteoarthrosis changes. A partially visualized severe osteoarthrosis changes on the left. 2. Mild to moderate osteoporosis changes of the hips. 3. No evidence fracture.
== END | disposition home or self-care (01) ==
LOC: RADCTMAIN 13:05
PROVIDERS: ATTEND Orthopaedic Surgery
DX: M17.0 Bilateral primary osteoarthritis of knee (principal); M11.261 Other chondrocalcinosis, right knee; M81.0 Age-related osteoporosis without current pathological fracture

== ENCOUNTER → 2022-08-18 | Outpatient (CLI) | payer MEDICARE ==
[2022-08-18 20:53] LABS: HCT 45.3 % (39.6-50.0); HGB 14.5 g/dL (13.0-17.0); MCH 31.8 pg (27.0-32.0); MCV 99.3 fL (80.0-97.0); Mean Platelet Volume 10.3 fL (9.5-12.2); NRBC Per 100 WBC 0 /100 WBCS (0.0-0.0); Platelet Count 234 X 10*3/uL (140-440); RBC 4.56 X 10*6/uL (4.40-5.60); RDW 13.6 % (11.5-14.5); WBC 5.27 X 10*3/uL (4.50-10.00)
[2022-08-18 21:17] LABS: African American GFR (CKD) 95.8 (60.0-200.0); Anion Gap 10.3 mmol/L (10.00-18.00); Blood Urea Nitrogen 16.8 mg/dL (9.0-27.0); Carbon Dioxide 28.7 mmol/L (20.0-27.5); Non-African American GFR(CKD) 82.7 (60.0-200.0); Potassium 4.6 mmol/L (3.5-5.5)
== END | disposition home or self-care (01) ==
LOC: LABPAT 12:54
PROVIDERS: ATTEND Internal Medicine Interventional Cardiology
DX: Z01.812 Encounter for preprocedural laboratory examination (principal); R94.39 Abnormal result of other cardiovascular function study
CPT/HCPCS: 36415; 80051; 82565; 84520; 85027

== ENCOUNTER → 2022-08-18 | Outpatient (CLI) | payer MEDICARE ==
[2022-08-18 17:28] LABS: INR 1.1 (<1.2); Partial Thromboplastin Time 24.8 sec (22.0-30.0); Prothrombin Time 11.7 sec (9.0-12.0)
[2022-08-18 21:23] LABS: African American GFR (CKD) 95.8 (60.0-200.0); Albumin 4.2 g/dL (3.8-4.9); Albumin/Globulin Ratio 1.91 (1.60-3.17); Anion Gap 10.9 mmol/L (10.00-18.00); Calcium 9.5 mg/dL (8.7-10.3); Carbon Dioxide 28.1 mmol/L (20.0-27.5); Globulin 2.2 g/dL (1.6-3.3); Non-African American GFR(CKD) 82.7 (60.0-200.0); Potassium 4.5 mmol/L (3.5-5.5); Total Bilirubin 0.4 mg/dL (0.30-1.20); Total Protein 6.4 g/dL (6.2-8.2)
[2022-08-19 06:53] LABS: Appearance,Urine Clear (Clear); Bilirubin,Urine Negative (Negative); Blood,Urine Negative (Negative); Color,Urine Yellow (Yellow); Ketones,Urine Negative (Negative); Nitrite,Urine Negative (Negative)
== END | disposition home or self-care (01) ==
LOC: LABPAT 15:34
PROVIDERS: ATTEND Orthopaedic Surgery
DX: Z01.812 Encounter for preprocedural laboratory examination (principal); M17.11 Unilateral primary osteoarthritis, right knee
CPT/HCPCS: 80053; 81003; 85610; 85730; 87070

== ENCOUNTER → 2022-08-25 | Day surgery (SDC) | payer MEDICARE ==
[~2022-08-25] MED LIST changes: +ALPRAZolam 0.25 MG TAB PO PRN; +ALPRAZolam 0.5 MG TAB PO PRN; +ASPIRIN 325 MG TAB PO ONE; +HEPARIN SODIUM 1,000 UN/ML (10ML VL) ONE; +IOPAMIDOL-370 100ML BTL INJ ONE; -LACTATED RINGERS 1,000 ML IV SCH; -LIDOCAINE 1% (10MG/ML) FOR IV START INTRADERMA PRN; +LIDOCAINE 1% INJ 10MG/ML (5 ML VIAL-PF) SQ ONE; +MIDAZOLAM 2 MG/2 ML VIAL IVP ONE; +NITROGLYCERIN SL TABS 0.4 MG TAB SUBLINGUAL PRN; +RX INFO: IV CONTRAST WAS GIVEN 1 EACH MISC MISCELLANE PRN; +SODIUM CHLORIDE 0.9% 1,000 ML IV SCH; +SODIUM CHLORIDE 0.9% 1,000 ML in EMPTY BAG 1 BAG IV SCH; +VERAPAMIL 2.5 MG/ML 2 ML AMP ONE; +VERAPAMIL SYRINGE (5 MG/10 ML) INTRAARTER ONE
[2022-08-25 08:34] VITALS: RESP 16; TEMP 97.2
[2022-08-25] MEDS: HEPARIN SODIUM 1,000 UN/ML (10ML VL) IVP ONE ×2 (09:52→10:01)
--- NOTE | 2022-08-25 10:31 | P.PCN ---
Date of Procedure: 08/25/22 Operative Findings: CARDIAC CATHETERIZATION PERFORMING PHYSICIAN: Maikel Guzman MD, RPVI PROCEDURE PERFORMED: 1. Selective right and left coronary angiogram 2. FFR of the RCA and LAD 3. Ultrasound-guided access of the right radial artery INDICATION: Abnormal myocardial perfusion imaging stress test in this 77-year-old gentleman who had syncope and he is going to undergo noncardiac surgery COMPLICATION: None APPROACH: Right radial artery LEVEL OF SEDATION: Moderate with a sedation length of 33 minutes PROCEDURE DESCRIPTION: After obtaining an informed consent, the patient was brought to cardiac computer lab aide. Local anesthesia was performed using lidocaine subcutaneously. The right radial artery was cannulated using Seldinger technique, the guidewire passed easily, following that we advanced a 5-[place] Islander sheath dilator assembly, the wire and dilator were removed and sheath was flushed. Following that, 2 mg of verapamil along with 5000 unit heparin were given. Selective right and left coronary angiogram using a 6-[place]er JR4 and JL 3.5 catheters. Following that I did an FFR of the RCA and LAD The procedure was completed there was no complication. SELECTIVE CORONARY ANGIOGRAM: The right coronary artery: Large caliber vessel and a dominant vessel. The distal RCA has intermediate lesion appears to be in the range of 60-70%. FFR was performed and came in to be nonischemic Left main: Calcified was mild disease only. Bifurcates into an LCx and LAD The left circumflex: Large caliber vessel nondominant vessel and has mild disease only. The left anterior descending artery: The mid LAD by the bifurcation of a diagonal branch has intermediate lesion appears to be in the range of 60-70%. FFR was performed and came in to be nonischemic FFR OF THE RCA AND LAD: Anticoagulation was initiated using heparin with continuous ACT monitoring. Subsequently I did engage the RCA using JR4 guiding catheter. Before engagement I did equalization between the Doppler and the guiding catheter. After that FFR was performed and came in to be nonischemic. Then I did equalization between the Doppler wire and the guiding catheter which was JL4 guiding catheter. After that I did an FFR of the LAD and also that came in to be nonischemic CONCLUSION: 1. 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 FFR was performed on both the RCA and LAD and came in to be nonischemic POSTPROCEDURE MANAGEMENT: Medical treatment and follow-up with the patient
[2022-08-25 13:13] VITALS: BP 133/89; PULSE 65
== END ==
LOC: CATHCVL 07:47
PROVIDERS: ATTEND Internal Medicine Interventional Cardiology
DX: I25.10 Atherosclerotic heart disease of native coronary artery without angina pectoris (principal); I34.0 Nonrheumatic mitral (valve) insufficiency; Z79.82 Long term (current) use of aspirin; Z79.899 Other long term (current) drug therapy
CPT/HCPCS: 93571; 93454; C1887 ×2; C1769 ×2; C1894; J2250; J2001; J1644; Q9967; 93799

== ENCOUNTER 2022-09-14 12:49 | Day surgery (SDC) | payer MEDICARE ==
[~2022-09-14 12:49] MED LIST changes: +ACETAMINOPHEN TAB 500 MG TAB PO PRN; -ALPRAZolam 0.25 MG TAB PO PRN; -ALPRAZolam 0.5 MG TAB PO PRN; -ASPIRIN 325 MG TAB PO ONE; +DEXAMETHASONE SOD PHOSPHATE 10 MG/ML 1 ML VIAL IV PRN; +DEXAMETHASONE SOD PHOSPHATE 4 MG/ML 1 ML VIAL IV ONE; +DOCUSATE 100 MG CAP PO PRN; +FAMOTIDINE 20 MG/2 ML VIAL IVP PRN; -HEPARIN SODIUM 1,000 UN/ML (10ML VL) ONE; +HYDROmorphone 0.5 MG/0.5 ML SYRINGE IVP PRN; -IOPAMIDOL-370 100ML BTL INJ ONE; +KETOROLAC 15 MG/ML 1 ML VIAL IVP PRN; +LIDOCAINE 1% (10MG/ML) FOR IV START INTRADERMA PRN; -LIDOCAINE 1% INJ 10MG/ML (5 ML VIAL-PF) SQ ONE; +MIDAZOLAM 2 MG/2 ML VIAL IV PRN; -MIDAZOLAM 2 MG/2 ML VIAL IVP ONE; -NITROGLYCERIN SL TABS 0.4 MG TAB SUBLINGUAL PRN; +ONDANSETRON 4 MG/2 ML VIAL IVP ONE; +ONDANSETRON 4 MG/2 ML VIAL IVP PRN; -RX INFO: IV CONTRAST WAS GIVEN 1 EACH MISC MISCELLANE PRN; -SODIUM CHLORIDE 0.9% 1,000 ML IV SCH; -SODIUM CHLORIDE 0.9% 1,000 ML in EMPTY BAG 1 BAG IV SCH; +TRANEXAMIC 1,000 MG/100ML-NACL 1,000 MG in SALINE 1 100ML.BAG IV PRN; +TRANEXAMIC 1,000 MG/100ML-NACL 1,000 MG in SALINE 1 100ML.BAG IVPB PRN; -VERAPAMIL 2.5 MG/ML 2 ML AMP ONE; -VERAPAMIL SYRINGE (5 MG/10 ML) INTRAARTER ONE; +oxyCODONE ER 10 MG TAB.ER.12H PO PRN
[2022-09-14] MEDS: LACTATED RINGERS 1,000 ML IV SCH ×2 (13:52→19:45)
[2022-09-14] MEDS ORDERED: MIDAZOLAM 2 MG/2 ML VIAL IV ONE (14:18)
[2022-09-14] MEDS ORDERED: fentaNYL (PF) 50 MCG/ML 2 ML AMP IVP ONE (14:18)
--- NOTE | 2022-09-14 14:59 | P.ANPRN ---
Procedure Note - Anesthesia - Nerve Block Performed Right Adductor Canal Time Out Performed: Yes (:18) Date of Procedure: 09/14/22 Procedure Start Time: Procedure Stop Time: Location of Patient: PreOp Indication: Acute Post-Operative Pain, Requested by Surgeon (Dr Levy) Sedation Type: Sedate with meaningful contact maintained Preparation: Sterile Prep Position: Supine Catheter: None Needle Types: Pajunk Needle Gauge: 21 Ultrasound used to visualize needle placement: Yes Ultrasound used to observe medication spread: Yes Injectate: 0.5% Ropivacaine (see comment for volume) (20cc) Blood Aspirated: No Pain Paresthesia on Injection Noted: No Resistance on Injection: Normal Image Stored and Saved: Yes Events: Uneventful and Well Tolerated
--- NOTE | 2022-09-14 15:00 | P.ANPRN ---
Procedure Note - Anesthesia - Nerve Block Performed Right iPack Time Out Performed: Yes Date of Procedure: 09/14/22 Procedure Start Time: Procedure Stop Time: Location of Patient: PreOp Indication: Acute Post-Operative Pain, Requested by Surgeon (Dr Levy) Sedation Type: Sedate with meaningful contact maintained Preparation: Sterile Prep Position: Supine Catheter: None Needle Types: Pajunk Needle Gauge: 21 Ultrasound used to visualize needle placement: Yes Ultrasound used to observe medication spread: Yes Injectate: 0.5% Ropivacaine (see comment for volume) (15cc +5cc PF Normal saline) Blood Aspirated: No Pain Paresthesia on Injection Noted: No Resistance on Injection: Normal Image Stored and Saved: Yes Events: Uneventful and Well Tolerated
[2022-09-14] MEDS ORDERED: ROCURONIUM 10 MG/ML (5 ML VIAL) IV ONE (16:08)
[2022-09-14] MEDS ORDERED: NEOSTIGMINE 1 MG/ML 10 ML VIAL ONE (16:08)
[2022-09-14] MEDS ORDERED: GLYCOPYRROLATE 0.2 MG/ML 2 ML VIAL ONE (16:08)
[2022-09-14] MEDS ORDERED: ePHEDrine 50 MG/ML 1 ML VIAL ONE (16:08)
[2022-09-14] MEDS ORDERED: LIDOCAINE 2% INJ 20 MG/ML (2 ML VIAL) ONE (16:08)
[2022-09-14] MEDS ORDERED: fentaNYL (PF) 50 MCG/ML 2 ML AMP ONE (16:08)
[2022-09-14] MEDS ORDERED: PROPOFOL 10 MG/ML 20 ML VIAL IV ONE (16:08)
[2022-09-14] MEDS ORDERED: HYDROmorphone (PF) 1 MG/ML ONE (16:08)
[2022-09-14] MEDS ORDERED: SODIUM CHLORIDE 0.9% (PF) 10 ML VIAL ONE (16:08)
[2022-09-14] MEDS ORDERED: ROPIVACAINE 5 MG/ML 30 ML VIAL ONE (16:08)
[2022-09-14] MEDS ORDERED: MIDAZOLAM 2 MG/2 ML VIAL ONE (16:08)
[2022-09-14] MEDS ORDERED: PHENYLEPHRINE-0.9% NACL SYG 1,000 MCG/10 ML SYRINGE ONE (16:08)
[2022-09-14] MEDS ORDERED: TRANEXAMIC 1,000 MG/100ML-NACL PREMIX BAG ONE (16:08)
[2022-09-14] MEDS ORDERED: SUCCINYLCHOLINE CHLORIDE 200 MG/10 ML VIAL IV ONE (16:08)
[2022-09-14] MEDS ORDERED: LACTATED RINGERS 1,000 ML IV ONE (16:40)
[2022-09-14] MEDS: ROPIVACAINE/EPI/CLONIDINE/KET 50 ML SYRINGE MISCELLANE PRN ×2 (16:45→17:39)
[2022-09-14] MEDS ORDERED: HYDROcodone/APAP 5-325MG 1 EACH TAB PO PRN (18:26)
[2022-09-14] MEDS ORDERED: hydrOXYzine pamoate 25 MG CAP PO PRN (18:26)
[2022-09-14] MEDS ORDERED: NALOXONE 0.4 MG/ML 1 ML VIAL IV PRN (18:26)
[2022-09-14] MEDS ORDERED: HYDROmorphone 0.5 MG/0.5 ML SYRINGE IVP PRN ×2 (18:26)
--- NOTE | 2022-09-14 18:37 | P.OP ---
Date of Procedure: 09/14/22 Preoperative Diagnosis: Severe right knee osteoarthritis Postoperative Diagnosis: Same Procedure(s) Performed: Right total knee arthroplasty Implants: 1. Stella Triathlon CR Femur Size #6 2. Trevor Triathlon Elaine Tibial Base Size #6 with 12 x 50 stem due to poor bone quality 3. Trevor Triathlon CS poly Size #9 4. Stella Triathlon all poly patella, Size #32 Anesthesia: ADITHYA, regional Surgeon: Howard Levy Barrel Reamer #1: Pippa Johnson Estimated Blood Loss (ml): 200 IV fluids (ml): 800 Pathology: none sent Condition: stable Disposition: PACU Indications for Procedure: I met with the patient preoperatively in the office setting and discussed treatment of their symptomatic knee arthritis. They failed a long course of nonsurgical treatment and elected to proceed with an elective total knee replacement. I discussed the potential risks and complications at length and gave them ample time to ask questions. Risks discussed included: risks from anesthesia, superficial site surgical infection, acute and/or chronic periprosthetic joint infection, delayed wound healing, drainage, wound necrosis, instability, stiffness, stiffness requiring manipulation and/or revision surgery, damage to local blood vessels or nerves, aseptic loosening of the implants, extensor mechanism issues including disruption, patellar maltracking, avascular necrosis etc., continued or worsened knee pain, generalized dissatisfaction with surgical outcome, need for revision surgery, an inability to regain preinjury level of function, DVT, PE, other medical complications, and possibly loss of life or limb. The patient voiced their understanding that while these are the most common complications other less common complications are possible. They provided both their verbal and written consent to go forward with surgery. Operative Findings: Severe tricompartmental knee arthritis. There is relatively poor bone in the tibia slightly elected to use a short stem Description of Procedure: The patient was identified in preoperative holding and the correct operative extremity was verified and marked with a marker. I reviewed the consent form with the patient at length. All of their questions were answered. The patient was given a block by anesthesia. They were then brought back to the operating room. They were transferred onto the operating room table where a general anesthetic, preoperative antibiotics, and tranexamic acid were administered by anesthesia. A tourniquet was applied to the proximal aspect of the operative extremity. The contralateral extremity was padded under the heel and secured to the operating room table with a nonsterile blue towel and tape. The ipsilateral arm was carefully draped across the patient's chest and secured with a pillow and foam. A post was applied over the lateral aspect of the ipsilateral thigh and a bolster was placed under the ipsilateral foot. I verified that the operative extremity was stable and the knee was flexed to 90. The operative extremity was then placed in a leg vernon, nonsterile drapes were applied, and the extremity was prepped and draped sterilely in the standard sterile fashion. Prior to starting surgery timeout was performed identifying the correct patient, operative extremity, and procedure. The leg was then elevated, exsanguinated with an Esmarch bandage, and the tourniquet was inflated. An anterior midline incision was made sharply with a scalpel. Once I had dissected deep to the superficial fascial layer medial and lateral flaps were elevated. A medial parapatellar arthrotomy was created. Upon opening the knee joint there were diffuse arthritic changes in all 3 compartments. The anterior horn of the medial meniscus were sharply released and a medial release was performed around the posterior medial corner of the knee to facilitate retractor placement. The fat pad was excised with electrocautery. The patella was found to be severely arthritic and a provisional cut was made with a sagittal saw to facilitate mobilization of the extensor mechanism during the procedure. Remnants of the ACL and PCL were then excised from the notch. 4 mm pins were then placed within the incision in the medial distal femur and proximal tibia. Arrays were applied to the pins and I verified they were completely tightened. The knee was then registered with the Fleep robot and manipulations in implant position were made to balance the knee and opitmize implant position. Using the Beau robotic saw all cuts were made in accordance with our plan. After all bony fragments had been removed the cuts were verified with the planar probe. The tibia was then subluxed forward and sized. The knee was brought into flexion and a lamina can machine operator was placed to allow removal of the meniscal remnants both medially and laterally as well as posterior osteophytes. Local anesthetic was then infiltrated around the joint capsule. Trial implants were then placed within the knee. Range of motion and collateral ligament tension was then evaluated. Adjustments in implant size and position were then made accordingly. Once the knee was felt to be appropriately balanced the Beau pins were removed. The patella was then recut, sized, and punched. A trial patellar button was then placed. With the trial components in place, the patella tracked midline. The femur was then drilled and the trial component removed. The trial tibial component was then appropriately rotated, pinned, and prepared for the keel. All trial components were then removed from the knee. The knee was thoroughly irrigated with pulsatile lavage. Cement was prepared via vacuum mixing in a bowl on the back table. I then hand pressurized cement into the femur and tibia and placed the implants beginning with the tibial base tray and poly liner, femoral component, and finally the patellar button. All extruded cement was removed including from the pin sites. Once the cement had hardened the knee was evaluated one final time with the final polyethylene liner in place. The knee had full extension and flexion and felt stable to varus and valgus stress throughout the arc of motion. The tourniquet was released and with the tourniquet down the patella tracked midline. All bleeders were controlled with electrocautery. The knee was then soaked for 3 minutes with a dilute Betadine soak. The knee was thoroughly irrigated using 3 L of sterile saline and pulsatile lavage. A deep drain was placed. The extensor mechanism was then reapproximated using pop off Vicryl sutures followed by a running barbed suture. The knee was then closed in layers with a 0 strata fix for the deep fascial layer, 2-0 strata fix for the superficial subcutaneous layer and Monocryl and Steri-Strips for the skin. A sterile dressing and drain sponge were applied. I verified that all instrument, sponge, and sharp counts were correct. The patient was then transferred off the operating room table, extubated, and brought to recovery having tolerated the procedure well. Pippa Johnson PA-C was required as a skilled assistant film editor due to the complexity of the procedure for patient positioning, draping, retraction, placement of hardware, and closure of wound. PLAN: The patient can weight-bear as tolerated on the operative extremity. DVT prophylaxis with aspirin 81 mg twice a day based on preoperative risk stratification. Follow-up in the office in 2 weeks for wound check and x-rays of the knee including an AP and lateral.
--- NOTE | 2022-09-14 19:18 | XR ---
EXAMINATION TYPE: XR knee limited RT DATE OF EXAM: 09/14/2022 7:01 PM INDICATION: Patient age:Male; 77 years old; Reason for study: post op; COMPARISON: CT 07/25/2022 TECHNIQUE: The Right knee(s) was examined in Frontal, lateral and oblique projections. FINDINGS: Status post total knee arthroplasty changes with hardware in appropriate alignment and in tact. No evidence of fracture. Subcutaneous lucencies and lucencies within the joint consistent with surgical changes. Drainage catheter terminates over the superior aspect of the knee anteriorly. IMPRESSION: Status post total knee arthroplasty changes with hardware intact and appropriate alignment. No fractu res identified.
--- NOTE | 2022-09-14 20:20 | P.CONS ---
History of Present Illness - Reason for Consult Consult date: 09/14/22 Medical management Requesting physician: Howard Levy - Chief Complaint Left knee surgery - History of Present Illness This is a pleasant 77-year-old patient follows with Dr. Noe Benson. 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 Patient is undergoing right total knee arthroplasty by Dr. Levy. Has a Hemovac in place. Pain control. No postoperative nausea vomiting or chest pain or shortness breath. Eating a sandwich. Several family members at the bedside. 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 . No smoking. Alcohol occasionally. Physical examination: VITAL SIGNS: 97.8, 57, 16, 126/79, 95% room air GENERAL: Weight 84.7 kg, declining bed awake comfortable EYES: Pupils equal. Conjunctiva normal. HEENT: External appearance of nose and ears normal, oral cavity grossly normal. NECK: JVD not raised; masses not palpable. HEART: First and second heart sounds are normal; no edema. LUNGS: Respiratory rate normal; clear to auscultation. ABDOMEN: Soft, nontender, liver spleen not palpable, no masses palpable. PSYCH: Alert and oriented x3; mood and affect normal. MUSCULOSKELETAL:No Clubbing/cyanosis;muscles-grossly intact. Dressing over the right knee with a Hemovac in place. Evidence of OA. NEUROLOGICAL: Cranial nerves grossly intact; no facial asymmetry, power and sensation grossly intact. LYMPHATICS: No lymph nodes palpable in the axilla and neck INVESTIGATIONS, reviewed in the clinical context: 08/18/2022: WBC 5.2 hemoglobin 14.5 platelets 234 potassium 4.6 BUN 16.8 creatinine 0.9 Assessment and plan: -Right total knee arthroplasty Aspirin 81 mg twice a day for DVT prophylaxis -Right lower extremity neuropathy radiating from lower back from prior surgery -BPH Flomax -Primary osteoarthritis Pain medications as needed Care was discussed with the patient and at the bedside. Questions answered. Thank you Dr. Levy Past Medical History Past Medical History: Musculoskeletal Disorder, Osteoarthritis (OA), Prostate Disorder, Sleep Apnea/CPAP/BIPAP Additional Past Medical History / Comment(s): "HX MITRAL VALVE "irratic" per pt, no recent problems." HX rt RETINA TEAR. "Slight sleep apnea"- no cpap used. Degenerative discs, spinal stenosis. Enlarged prostate. Uses a cane as needed. numbness to rt leg and hands from back issues, History of Any Multi-Drug Resistant Organisms: None Reported Past Surgical History: Heart Catheterization, Hernia Repair, Orthopedic Surgery, Tonsillectomy Additional Past Surgical History / Comment(s): Right retina repair, bilateral trigger finger, right knee arthroscopy, bilateral carpal tunnel, bilateral cataracts with lensimplants, C3-C6 discectomy fusion 3-4-5, colonoscopy. rt inguinal repair Past Anesthesia/Blood Transfusion Reactions: No Reported Reaction Smoking Status: Never smoker - Past Family History Mother Family Medical History: No Reported History, Asthma Additional Family Medical History / Comment(s): late onset leukemia Medications and Allergies Home Medications Medication Instructions Recorded Confirmed Type Multivitamins, Thera [Multivitamin 1 tab PO DAILY 09/06/21 09/14/22 History (formulary)] Tamsulosin [Flomax] 0.4 mg PO HS 09/06/21 09/14/22 History Cyclobenzaprine [Flexeril] 5 mg PO TID PRN 08/23/22 09/14/22 History traMADol HCL 50 mg PO Q6H PRN 08/23/22 09/14/22 History Aspirin 81 mg PO BID 30 Days #60 tab 09/14/22 Rx Docusate [Colace] 100 mg PO BID #60 capsule 09/14/22 Rx HYDROcodone/APAP 5-325MG [Fillmore 1 - 2 tab PO Q6HR PRN 7 Days #32 09/14/22 Rx 5-325] tab Omeprazole 40 mg PO DAILY 30 Days #30 cap 09/14/22 Rx Allergies Allergy/AdvReac Type Severity Reaction Status Date / Time No Known Allergies Allergy Verified 09/14/22 13:36 Physical Exam Vitals: Vital Signs Temp Pulse Resp BP Pulse Ox 09/14/22 19:08 57 L 16 126/79 95 09/14/22 18:53 61 16 100/80 93 L 09/14/22 18:38 68 16 120/70 95 06/14/23 18:23 97.8 F 72 16 120/70 99 09/14/22 14:30 52 L 16 122/76 99 09/14/22 14:19 54 L 16 145/76 98 09/14/22 13:45 97.5 F L 64 16 138/79 98 Intake and Output 09/14/22 09/14/22 09/14/22 06:59 14:59 22:59 Intake Total 700 1300 Output Total 100 Balance 700 1200 Intake: IV 700 1300 Output: Estimated Blood Loss 100 Other: Weight 84.7 kg
[2022-09-14] MEDS: TAMSULOSIN 0.4 MG CAP.ER.24H PO SCH (20:48)
[2022-09-14] MEDS: ASPIRIN 81 MG PO SCH (20:48)
[2022-09-14] MEDS: ONDANSETRON 4 MG/2 ML VIAL IVP PRN (20:48)
[2022-09-14] MEDS: SENNOSIDES-DOCUSATE SODIUM 1 EACH TAB PO SCH (20:48)
[2022-09-15] MEDS: LACTATED RINGERS 1,000 ML IV SCH ×4 (06:12→23:13)
[2022-09-15 06:55] LABS: Basophils % (A) 0 %; Eosinophils % (A) 0 %; HCT 39.5 % (39.0-53.0); HGB 13.1 gm/dL (13.0-17.5); Lymphocytes # (A) 0.7 k/uL (1.0-4.8); Lymphocytes % (A) 8 %; MCH 32.3 pg (25.0-35.0); MCHC 33.1 g/dL (31.0-37.0); MCV 97.4 fL (80.0-100.0); Mean Platelet Volume 7.8; Monocytes # (A) 0.7 k/uL (0-1.0); Monocytes % (A) 7 %; Neutrophils # (A) 7.6 k/uL (1.3-7.7); Neutrophils % (A) 84 %; Platelet Count 237 k/uL (150-450); RBC 4.06 m/uL (4.30-5.90); RDW 12.7 % (11.5-15.5); WBC 9.1 k/uL (3.8-10.6)
[2022-09-15] MEDS: ASPIRIN 81 MG PO SCH ×2 (09:08→20:25)
[2022-09-15] MEDS: MULTIVITAMINS, THERA 1 EACH TAB PO SCH (09:08)
--- NOTE | 2022-09-15 09:12 | P.DS ---
Providers Expected date of discharge: 09/15/22 Attending physician: Howard Levy Consults: 09/14/22 18:26 Consult Physician Routine Consulting Provider: Osman Morton Consult Reason/Comments: medical management Do you want consulting provider notified?: Yes Primary care physician: Noe Benson MD Hospital Course: This is a 77-year-old male who has been followed in our office by Dr. Levy for continued complaints of right knee pain due to right knee osteoarthritis. Treatment options were discussed, and patient elected to undergo a right total knee arthroplasty. Patient was seen pre-operatively by Dr. Benson, Dr. Guzman and cleared for surgery. Patient underwent a right total knee arthroplasty on 09/14/[address] Levy. The procedure was performed without complication or sequelae. The patient is doing fairly well postoperatively. Vital signs and labs are stable on postoperative day #1. Patient was examined bedside this morning with Dr. Levy. Patient states she is overall doing well and pain in his right knee is well-controlled. He has been ambulating with a walker with minimal assistance. Patient is experiencing urinary retention and nurses inserted a straight cath. Patient is comfortable being discharged home today. Patient has no new complaints this morning. On examination, the patient is sitting up in bed in no apparent distress. She is alert and orientated 3. On inspection of the right knee, there is a clean, dry, intact surgical dressing in place. Patient has good strength and ROM of the right ankle and toes. Motor and sensory function is intact of the right lower extremity. The dorsalis pedis pulse is easily palpable, the right lower extremity is warm and well perfused with brisk capillary refill. Calf is soft and non-tender to palpation. Hemovac drain is removed bedside during examination. Patient is discharged home with home health care today in good condition, pending medical clearance. Patient will follow-up with Dr. Levy in the office in 2 weeks. Please see med rec for accurate list of discharge medication. Plan - Discharge Summary Discharge Rx Participant: No New Discharge Prescriptions: New Aspirin 81 mg PO BID 30 Days #60 tab Docusate [Colace] 100 mg PO BID #60 capsule Omeprazole 40 mg PO DAILY 30 Days #30 cap HYDROcodone/APAP 5-325MG [Halliday 5-325] 1 - 2 tab PO Q6HR PRN 7 Days #32 tab PRN Reason: Pain No Action Multivitamins, Thera [Multivitamin (formulary)] 1 tab PO DAILY Tamsulosin [Flomax] 0.4 mg PO HS traMADol HCL 50 mg PO Q6H PRN PRN Reason: Pain Cyclobenzaprine [Flexeril] 5 mg PO TID PRN PRN Reason: Muscle Spasm Discharge Medication List Multivitamins, Thera [Multivitamin (formulary)] 1 tab PO DAILY 09/06/21 [History] Tamsulosin [Flomax] 0.4 mg PO HS 09/06/21 [History] Cyclobenzaprine [Flexeril] 5 mg PO TID PRN 08/23/22 [History] traMADol HCL 50 mg PO Q6H PRN 08/23/22 [History] Aspirin 81 mg PO BID 30 Days #60 tab 09/14/22 [Rx] Docusate [Colace] 100 mg PO BID #60 capsule 09/14/22 [Rx] HYDROcodone/APAP 5-325MG [Halliday 5-325] 1 - 2 tab PO Q6HR PRN 7 Days #32 tab 09/14/22 [Rx] Omeprazole 40 mg PO DAILY 30 Days #30 cap 09/14/22 [Rx] Follow up Appointment(s)/Referral(s): Howard Levy MD [Medical Doctor] - 2 Weeks Activity/Diet/Wound Care/Special Instructions: Weight bear to tolerance on operative extremity with a walker. Keep operative dressing in place until follow-up in the office. Call the office if dressing becomes saturated or falls off. May shower over dressing. Take pain medications as prescribed. Take aspirin 81mg twice a day x 4 weeks for blood clot prevention. Follow-up in the office in two weeks at [facility]. Call the office with any questions or concerns, Discharge Disposition: HOME WITH HOME HEALTH SERVICES
[2022-09-15] MEDS: HYDROcodone/APAP 5-325MG 1 EACH TAB PO PRN ×2 (10:29→18:00)
--- NOTE | 2022-09-15 14:45 | P.PN ---
Progress Note - Text Progress Note Date: 09/15/22 - Chief Complaint Left knee surgery - History of Present Illness This is a pleasant 77-year-old patient follows with Dr. Noe Benson. 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 Patient is undergoing right total knee arthroplasty by Dr. Levy. Has a Hemovac in place. Pain control. No postoperative nausea vomiting or chest pain or shortness breath. Eating a sandwich. Several family members at the bedside. September 15: Some pain present. Did tolerate breakfast. Breathing stable. Sitting up. The template. Active Medications Hydrocodone Bitart/Acetaminophen (Hydrocodone/Apap 5-325mg 1 Each Tab) 1 each PO Q6HR PRN PRN Reason: Pain Scale 1 to 5 Stop: 10/14/22 18:27 Hydrocodone Bitart/Acetaminophen (Hydrocodone/Apap 5-325mg 1 Each Tab) 2 each PO Q6HR PRN PRN Reason: Pain Scale 6 to 10 Stop: 10/14/22 18:27 Last Admin: 09/15/22 10:29 Dose: 2 each Aspirin (Aspirin 81 Mg) 81 mg PO BID [place] Stop: 10/14/22 21:01 Last Admin: 09/15/22 09:08 Dose: 81 mg Cyclobenzaprine HCl (Cyclobenzaprine 5 Mg Tab) 5 mg PO TID PRN PRN Reason: Muscle Spasm Hydromorphone HCl (Hydromorphone 0.5 Mg/0.5 Ml Syringe) 0.125 mg IVP Q3HR PRN PRN Reason: Pain Scale 1 to 3 Stop: 10/14/22 18:27 Hydromorphone HCl (Hydromorphone 0.5 Mg/0.5 Ml Syringe) 0.5 mg IVP Q3HR PRN PRN Reason: Pain Scale 7 to 10 Stop: 10/14/22 18:27 Hydromorphone HCl (Hydromorphone 0.5 Mg/0.5 Ml Syringe) 0.25 mg IVP Q3HR PRN PRN Reason: Pain Scale 4 to 6 Stop: 10/14/22 18:27 Hydroxyzine Pamoate (Hydroxyzine Pamoate 25 Mg Cap) 25 mg PO Q4HR PRN PRN Reason: Nausea, Anxiety, Pain Control Stop: 10/14/22 18:27 Lactated Ringer's (Lactated Ringers) 1,000 mls @ 20 mls/hr IV .Q24H [facility] Stop: 10/14/22 07:13 Last Admin: 09/14/22 13:52 Dose: 1,000 mls Lactated Ringer's (Lactated Ringers) 1,000 mls @ 100 mls/hr IV .Q10H [facility] Stop: 10/14/22 18:31 Last Admin: 09/15/22 06:12 Dose: 100 mls/hr Lidocaine HCl (Lidocaine 1% (10mg/Ml) For Iv Start) 0.1 ml INTRADERMA PER PROTOCOL PRN PRN Reason: IV Start Stop: 10/14/22 07:13 Multivitamins (Multivitamins, Thera 1 Each Tab) 1 each PO DAILY [facility] Last Admin: 09/15/22 09:08 Dose: 1 each Naloxone HCl (Naloxone 0.4 Mg/Ml 1 Ml Vial) 0.2 mg IV Q2M PRN PRN Reason: Opioid Reversal Stop: 10/14/22 18:27 Ondansetron HCl (Ondansetron 4 Mg/2 Ml Vial) 4 mg IVP Q8HR PRN PRN Reason: Nausea And Vomiting Stop: 10/14/22 18:27 Last Admin: 09/14/22 20:48 Dose: 4 mg Senna/Docusate Sodium (Sennosides-Docusate Sodium 1 Each Tab) 2 each PO HS [facility] Stop: 10/14/22 21:01 Last Admin: 09/14/22 20:48 Dose: 2 each Tamsulosin HCl (Tamsulosin 0.4 Mg Cap.Er.24h) 0.4 mg PO [facility] Last Admin: 09/14/22 20:48 Dose: 0.4 mg Past medical history to include: Osteomyelitis, BPH, cerebellum and sleep apnea, spinal stenosis, 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 . No smoking. Alcohol occasionally. Physical examination: VITAL SIGNS: 98, 65, 16, 116/65, 98% room air GENERAL: Sitting up, comfortable EYES: Pupils equal. Conjunctiva normal. HEENT: External appearance of nose and ears normal, oral cavity grossly normal. NECK: JVD not raised; masses not palpable. HEART: First and second heart sounds are normal; no edema. LUNGS: Respiratory rate normal; clear to auscultation. ABDOMEN: Soft, nontender, liver spleen not palpable, no masses palpable. PSYCH: Alert and oriented x3; mood and affect normal. MUSCULOSKELETAL:No Clubbing/cyanosis;muscles-grossly intact. Dressing over the right knee with a Hemovac in place. Evidence of OA. INVESTIGATIONS, reviewed in the clinical context: September 15: White count 9.1 hemoglobin 13.1 platelets 237 08/18/2022: WBC 5.2 hemoglobin 14.5 platelets 234 potassium 4.6 BUN 16.8 creatinine 0.9 Assessment and plan: -Right total knee arthroplasty Aspirin 81 mg twice a day for DVT prophylaxis -Right lower extremity neuropathy radiating from lower back from prior surgery -BPH Flomax -Primary osteoarthritis Pain medications as needed Discussed. Continue current medications. Thank you Dr. Levy
[2022-09-15] MEDS: CYCLOBENZAPRINE 5 MG TAB PO PRN ×2 (15:13→20:25)
[2022-09-15] MEDS: TAMSULOSIN 0.4 MG CAP.ER.24H PO SCH (20:25)
[2022-09-15] MEDS: ONDANSETRON 4 MG/2 ML VIAL IVP PRN (20:25)
[2022-09-15] MEDS: SENNOSIDES-DOCUSATE SODIUM 1 EACH TAB PO SCH (20:25)
[2022-09-15] MEDS: HYDROmorphone 0.5 MG/0.5 ML SYRINGE IVP PRN (20:26)
[2022-09-16] MEDS: HYDROmorphone 0.5 MG/0.5 ML SYRINGE IVP PRN (00:16)
[2022-09-16] MEDS: LACTATED RINGERS 1,000 ML IV SCH (08:26)
[2022-09-16] MEDS: ASPIRIN 81 MG PO SCH (08:27)
[2022-09-16] MEDS: MULTIVITAMINS, THERA 1 EACH TAB PO SCH (08:27)
[2022-09-16] MEDS: HYDROcodone/APAP 5-325MG 1 EACH TAB PO PRN (08:28)
[2022-09-16 14:36] VITALS: BP 115/67; PULSE 77; RESP 16; TEMP 98.8
--- NOTE | 2022-09-16 15:05 | P.PN ---
Progress Note - Text Progress Note Date: 09/16/22 - Chief Complaint Left knee surgery - History of Present Illness This is a pleasant 77-year-old patient follows with Dr. Noe Benson. 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 Patient is undergoing right total knee arthroplasty by Dr. Levy. Has a Hemovac in place. Pain control. No postoperative nausea vomiting or chest pain or shortness breath. Eating a sandwich. Several family members at the bedside. September 15: Some pain present. Did tolerate breakfast. Breathing stable. Sitting up. The template. September 16: Chan catheter was discontinued. Post-was still having residual was about 300. Discussed with patient. Have the patient follow-up with urology. Already on Flomax. 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 . No smoking. Alcohol occasionally. Physical examination: VITAL SIGNS: 98.8, 77, 16, 115/67, 96% room air GENERAL: Sitting up, comfortable EYES: Pupils equal. Conjunctiva normal. HEENT: External appearance of nose and ears normal, oral cavity grossly normal. NECK: JVD not raised; masses not palpable. HEART: First and second heart sounds are normal; no edema. LUNGS: Respiratory rate normal; clear to auscultation. ABDOMEN: Soft, nontender, liver spleen not palpable, no masses palpable. PSYCH: Alert and oriented x3; mood and affect normal. MUSCULOSKELETAL:No Clubbing/cyanosis;muscles-grossly intact. Dressing over the right knee with a Hemovac in place. Evidence of OA. INVESTIGATIONS, reviewed in the clinical context: September 15: White count 9.1 hemoglobin 13.1 platelets 237 08/18/2022: WBC 5.2 hemoglobin 14.5 platelets 234 potassium 4.6 BUN 16.8 creatinine 0.9 Assessment and plan: -Right total knee arthroplasty Aspirin 81 mg twice a day for DVT prophylaxis -Right lower extremity neuropathy radiating from lower back from prior surgery -Probable chronic urinary retention from bladder dysfunction/ BPH Chan catheter discontinued. Postvoid residual about 300 mL. Follow-up outpatient with Dr. Jackson -BPH Flomax -Primary osteoarthritis Pain medications as needed Medications discussed. Follow-up outpatient Dr. Jackson. Thank you Dr. Levy
== END 2022-09-16 15:03 | disposition home health service (06) ==
LOC: OR 12:49 → 4SSUR 18:18 → OR 09-16 15:03
PROVIDERS: ATTEND Orthopaedic Surgery
DX: M17.11 Unilateral primary osteoarthritis, right knee (principal); M25.761 Osteophyte, right knee; G89.18 Other acute postprocedural pain; I34.0 Nonrheumatic mitral (valve) insufficiency; F10.20 Alcohol dependence, uncomplicated; H91.90 Unspecified hearing loss, unspecified ear; N40.0 Benign prostatic hyperplasia without lower urinary tract symptoms; Z79.1 Long term (current) use of non-steroidal anti-inflammatories (NSAID); Z79.899 Other long term (current) drug therapy
CPT/HCPCS: 0055T; 27447; 64447; 64999; 85025

== ENCOUNTER → 2023-10-30 | Outpatient (CLI) | payer MEDICARE ==
[2023-10-30 09:53] LABS: INR 1.2 (<1.2); Prothrombin Time 12.5 sec (10.0-12.5)
--- NOTE | 2023-10-30 10:16 | XR ---
EXAMINATION TYPE: XR chest 2V DATE OF EXAM: 10/30/2023 9:27 AM CLINICAL INDICATION:Male, 78 years old with history of Z01.818; [facility] COMPARISON: Chest radiographs from 01/24/2018 TECHNIQUE: XR chest 2V Frontal view of the chest. FINDINGS: Lungs/Pleura: There is flattening of the diaphragm with increased lucency of the lungs. No evidence o f pneumothorax, pleural effusion or focal consolidation. Pulmonary vascularity: Unremarkable. Heart/mediastinum: Cardiomediastinal silhouette is unremarkable. Musculoskeletal: No acute osseous pathology. There is fixation hardware in the lower cervical spine. IMPRESSION: 1. No acute cardiopulmonary disease process. 2. COPD changes.
[2023-10-30 17:52] LABS: Appearance,Urine Clear (Clear); Bilirubin,Urine Negative (Negative); Blood,Urine Negative (Negative); Color,Urine Yellow (Yellow); Ketones,Urine Negative (Negative); Nitrite,Urine Negative (Negative); PH, Urine 6.5; Specific Gravity,Urine 1.016 (1.001-1.030)
[2023-10-30 17:58] LABS: Bacteria,Urine None Seen (None Seen)
== END | disposition home or self-care (01) ==
LOC: LABPAT 08:42
PROVIDERS: ATTEND Orthopaedic Surgery Orthopaedic Surgery of the Spine
DX: Z01.818 Encounter for other preprocedural examination (principal); J44.9 Chronic obstructive pulmonary disease, unspecified; Z22.322 Carrier or suspected carrier of Methicillin resistant Staphylococcus aureus
CPT/HCPCS: 36415; 71046; 81001; 85610; 85730; 86850; 86900; 86901; 87070

== ENCOUNTER 2023-11-10 08:00 | Inpatient (IN) | payer MEDICARE ==
[~2023-11-10 08:00] MED LIST changes: +ACETAMINOPHEN TAB 325 MG TAB ONE; -ACETAMINOPHEN TAB 500 MG TAB PO PRN; +ALBUMIN HUMAN 5% 250 ML IVPB ONE; +ATORVASTATIN 40 MG TAB ONE; +CYCLOBENZAPRINE 10 MG TAB ONE; -DEXAMETHASONE SOD PHOSPHATE 10 MG/ML 1 ML VIAL IV PRN; -DEXAMETHASONE SOD PHOSPHATE 4 MG/ML 1 ML VIAL IV ONE; -DOCUSATE 100 MG CAP PO PRN; -FAMOTIDINE 20 MG/2 ML VIAL IVP PRN; +GLYCOPYRROLATE 0.2 MG/ML 2 ML VIAL ONE; +HYDROcodone/APAP 5-325MG 1 EACH TAB ONE; -HYDROmorphone 0.5 MG/0.5 ML SYRINGE IVP PRN; +KETAMINE HCL IN 0.9 % NACL 50 MG/5 ML SYRINGE ONE; -KETOROLAC 15 MG/ML 1 ML VIAL IVP PRN; +LACTULOSE 20 GM/30 ML CUP ONE; -LIDOCAINE 1% (10MG/ML) FOR IV START INTRADERMA PRN; +LIDOCAINE 1% INJ 10MG/ML (20 ML MDV) ONE; -MIDAZOLAM 2 MG/2 ML VIAL IV PRN; +MIDAZOLAM 2 MG/2 ML VIAL ONE; +NEOSTIGMINE 1 MG/ML 10 ML VIAL ONE; -ONDANSETRON 4 MG/2 ML VIAL IVP ONE; -ONDANSETRON 4 MG/2 ML VIAL IVP PRN; +ONDANSETRON 4 MG/2 ML VIAL ONE; +PHENYLEPHRINE 10 MG/ML VIAL ONE; +PROPOFOL 10 MG/ML 20 ML VIAL IV ONE; +ROCURONIUM 10 MG/ML (5 ML VIAL) IV ONE; +SENNOSIDES 8.6 MG TAB ONE; +SUCCINYLCHOLINE CHLORIDE 200 MG/10 ML VIAL IV ONE; +TAMSULOSIN 0.4 MG CAP.ER.24H PO ONE; -TRANEXAMIC 1,000 MG/100ML-NACL 1,000 MG in SALINE 1 100ML.BAG IV PRN; -TRANEXAMIC 1,000 MG/100ML-NACL 1,000 MG in SALINE 1 100ML.BAG IVPB PRN; +TRANEXAMIC 1,000 MG/100ML-NACL PREMIX BAG ONE; +cefTRIAXone 1 GM VIAL ONE; +ePHEDrine 50 MG/ML 1 ML VIAL ONE; +fentaNYL (PF) 50 MCG/ML 2 ML AMP ONE; -oxyCODONE ER 10 MG TAB.ER.12H PO PRN
[2023-11-10] MEDS ORDERED: HYDROcodone/APAP 5-325MG 1 EACH TAB ONE ×6 (12:47→23:17)
[2023-11-10] MEDS ORDERED: CYCLOBENZAPRINE 10 MG TAB ONE ×2 (12:49→23:18)
[2023-11-10] MEDS ORDERED: ATORVASTATIN 40 MG TAB ONE (21:22)
[2023-11-11] MEDS ORDERED: ACETAMINOPHEN TAB 325 MG TAB ONE ×4 (01:23→19:28)
[2023-11-11] MEDS ORDERED: CYCLOBENZAPRINE 10 MG TAB ONE ×3 (06:07→20:10)
[2023-11-11] MEDS ORDERED: HYDROcodone/APAP 5-325MG 1 EACH TAB ONE ×6 (06:08→20:11)
[2023-11-11] MEDS ORDERED: TAMSULOSIN 0.4 MG CAP.ER.24H PO ONE (11:13)
[2023-11-11] MEDS ORDERED: SENNOSIDES 8.6 MG TAB ONE ×2 (11:13→20:11)
[2023-11-11] MEDS ORDERED: ATORVASTATIN 40 MG TAB ONE (20:10)
[2023-11-12] MEDS ORDERED: HYDROcodone/APAP 5-325MG 1 EACH TAB ONE ×6 (02:44→18:53)
[2023-11-12] MEDS ORDERED: LACTULOSE 20 GM/30 ML CUP ONE ×2 (08:59)
[2023-11-12] MEDS ORDERED: TAMSULOSIN 0.4 MG CAP.ER.24H PO ONE (08:59)
[2023-11-12] MEDS ORDERED: SENNOSIDES 8.6 MG TAB ONE ×2 (08:59→20:55)
[2023-11-12] MEDS ORDERED: CYCLOBENZAPRINE 10 MG TAB ONE ×2 (09:01→18:52)
[2023-11-12] MEDS ORDERED: ATORVASTATIN 40 MG TAB ONE (20:55)
[2023-11-13] MEDS ORDERED: CYCLOBENZAPRINE 10 MG TAB ONE ×3 (00:41→21:26)
[2023-11-13] MEDS ORDERED: cefTRIAXone 1 GM VIAL ONE ×3 (00:42→11:42)
[2023-11-13] MEDS ORDERED: HYDROcodone/APAP 5-325MG 1 EACH TAB ONE ×8 (00:42→21:27)
[2023-11-13] MEDS ORDERED: TAMSULOSIN 0.4 MG CAP.ER.24H PO ONE (08:56)
[2023-11-13] MEDS ORDERED: SENNOSIDES 8.6 MG TAB ONE ×2 (09:02→21:26)
[2023-11-13] MEDS ORDERED: ATORVASTATIN 40 MG TAB ONE (21:26)
[2023-11-14] MEDS ORDERED: ACETAMINOPHEN TAB 325 MG TAB ONE ×2 (09:59)
[2023-11-14] MEDS ORDERED: TAMSULOSIN 0.4 MG CAP.ER.24H PO ONE (10:32)
[2023-11-14] MEDS ORDERED: CYCLOBENZAPRINE 10 MG TAB ONE ×2 (10:32→17:20)
[2023-11-14] MEDS ORDERED: HYDROcodone/APAP 5-325MG 1 EACH TAB ONE ×4 (10:33→17:20)
[2023-11-14] MEDS ORDERED: SENNOSIDES 8.6 MG TAB ONE ×2 (17:20→21:20)
[2023-11-14] MEDS ORDERED: cefTRIAXone 1 GM VIAL ONE (21:20)
[2023-11-14] MEDS ORDERED: LACTULOSE 20 GM/30 ML CUP ONE ×2 (21:20)
[2023-11-14] MEDS ORDERED: ATORVASTATIN 40 MG TAB ONE (21:20)
[2023-11-15] MEDS ORDERED: CYCLOBENZAPRINE 10 MG TAB ONE ×3 (05:22→20:37)
[2023-11-15] MEDS ORDERED: HYDROcodone/APAP 5-325MG 1 EACH TAB ONE ×6 (05:23→20:38)
[2023-11-15] MEDS ORDERED: TAMSULOSIN 0.4 MG CAP.ER.24H PO ONE (08:45)
[2023-11-15] MEDS ORDERED: SENNOSIDES 8.6 MG TAB ONE ×2 (08:46→20:37)
[2023-11-15] MEDS ORDERED: cefTRIAXone 1 GM VIAL ONE (20:15)
[2023-11-15] MEDS ORDERED: ATORVASTATIN 40 MG TAB ONE (20:37)
[2023-11-16] MEDS ORDERED: SENNOSIDES 8.6 MG TAB ONE (07:52)
[2023-11-16] MEDS ORDERED: TAMSULOSIN 0.4 MG CAP.ER.24H PO ONE (07:52)
[2023-11-16] MEDS ORDERED: HYDROcodone/APAP 5-325MG 1 EACH TAB ONE ×2 (07:56)
[2023-11-16] MEDS ORDERED: CYCLOBENZAPRINE 10 MG TAB ONE (07:56)
--- NOTE | 2023-12-01 16:14 | P.OP ---
Date of Procedure: 11/08/23 Preoperative Diagnosis: Severe spinal stenosis L3-4 L4-5 L5-S1, degenerative disc disease L3-4 L4-5 L5- S1, neurogenic claudication, lower extremity radiculopathy, low back pain, facet arthrosis Postoperative Diagnosis: Same Anesthesia: GETA Pathology: none sent Condition: stable Disposition: PACU Description of Procedure: DESCRIPTION OF PROCEDURE(S): BRIEF OPERATIVE NOTE Preoperative Diagnosis: Severe spinal stenosis L3-4 L4-5 L5-S1, degenerative disc disease L3-4 L4-5 L5-S1, neurogenic claudication, lower extremity radiculopathy, low back pain, facet arthrosis Postoperative Diagnosis:Severe spinal stenosis L3-4 L4-5 L5-S1, degenerative disc disease L3-4 L4-5 L5-S1, neurogenic claudication, lower extremity radiculopathy, low back pain, facet arthrosis Procedure: Laminectomy and decompression OpenPosterior lateral decompression and fusion L3-4 L4-5 L5-S1 Local autogenous bone grafting Use of Cell Saver Use of bone graft extenders Use of intraoperative CT guidance navigation with GetBack navigation monitoring system Surgeon: Dr. Ash Staff Home Therapy Rn: Danny ZULUAGA who is present throughout the entire the case persistence during positioning, dissection, exposure, visualization, and all crucial elements of the case as well as closure. Anesthesia: General anesthesia Estimated blood loss: Approximately 800 cc with blood given back via Cell Saver Complications: None apparent Components implanted: K2M [place] minimally invasive Crandall pedicle screw system with 8 screws to rods and cross-links Disposition: To recovery room in good stable condition. OPERATIVE INDICATIONS The patient has had long-standing issues in their lower back and lower ex tremities. He is found to have severe spinal stenosis at multiple levels of the lumbar spine. He had degenerative disc disease with neurogenic claudication and radiculopathy was correlated well with his low back and lower extremity symptoms and findings on imaging. He was having great deal of difficulty with any sort of ambulation walking and he was severely debilitated due to his symptoms. The patient has been through conservative treatment. We discussed various treatment options including surgery, and the patient wishes to proceed with surgery We discussed the risk, patient's alternatives and benefits of surgery including but not limited to, risk of bleeding risk of infection, risk of need for further surgery, risk of decreased, loss of motion, muscle function, malunion nonunion, hardware failure, nerve damage, paralysis, heart attack, blindness and . OPERATIVE SUMMARY After discussing all the risks, patient alternatives and benefits at length, the patient elected to proceed with surgical intervention, signed informed consent, and presented for their procedure. The patient was seen and examined in the preoperative holding area and the surgical site was marked. The patient was given antibiotics and brought to the operating room. The patient was sedated and intubated by anesthesia in standard fashion. The patient was positioned on to the operating room table in a prone position on the appropriate frame which was well-padded and well molded. We were careful to pad any bony prominences and pressure points. We were careful to maintain the patient's cervical spine and good neutral alignment and position throughout. The patient was prepped and draped in a normal standard fashion. An appropriate timeout and keystone protocol performed. We were able to proceed with the surgery. The local wound area was infiltrated with local anesthetic. I was able utilize C-arm guidance to establish appropriate position over the pedicles bilaterally at the appropriate levels. With the appropriate levels confirmed was able to make midline incisions over the appropriate levels from L3-S1. I was able to dissect down over the midline and over the facet joints down to the transverse processes bilaterally from L3-S1. I was able to establish appropriate alignment and position for placement of screws at each level bilaterally. We used intraoperative navigation guidance system with Z monitoring in order to establish screw holes bilaterally from L3-S1. Utilizing C-arm in his house able to establish a Jamshidi needle over the lateral aspect of the pedicle and advanced the trocar into the pedicle being careful not to breech superiorly inferiorly medially or laterally. Position was confirmed with AP and lateral images on C-arm. I was able to establish the trocar into the pedicle appropriately into the posterior aspect of the vertebral body bilaterally at the appropriate levels. This was done at each of the pedicle positions and each of the vertebrae. I was able place the guidewire into the trocar and into the vertebral body appropriately under C-arm guidance. Dissection was taken down over the wire to the appropriate starting position for the screw placed. The appropriate length screw was chosen, threaded over the guidewire and screwed appropriately into the pedicle and vertebral body under C- arm guidance in excellent alignment and position with good bony purchase. This is done at each of the screw sites at the appropriate levels from L3-S1. With the screws intact I started the decompression and laminectomy was also performed. I was able get excellent foraminal decompression and central decompression with undermining across midline to perform a laminectomy centrally and contralaterally at the midline and the bilateral neuroforamen. I was able get good central decompression. The ligamentum flavum was taken down to further decompress centrally and at bilateral neural foramen. I was able to expose the disc space and visualize the traversing nerve root. The wound was copiously irrigated and suctioned dry. There is no evidence of any dural tear or leak. Good hemostasis maintained. There is no evidence of any dural tear or leak. The wound was irrigated and suctioned dry. With the hardware intact, intraoperative C-arm imaging was again taken which showed good alignment and position of the hardware at the appropriate levels. We were then able to measure, contour and place the rods and appropriate hardware bilaterally. I was able to place capcrews, tighten them down, and torque them with the torque screwdriver appropriately. With this intact I was able to place the local autogenous bone graft with additional bone graft enhancer as necessary into the posterior lateral gutters over the decorticated transverse processes. The remainder of the bone graft was placed over the facet joint on the contralateral side after taking down the facet joint capsule. With the bone graft intact, a stable construct, and good decompression at the appropriate levels, we were able to proceed with closure. Good hemostasis was maintained. There is no evidence of dural tear or leak. The fascia was closed for a watertight closure. he subcuticular tissue was closed with absorbable suture. The wound was cleaned and dried and dressed with the appropriate dressing. The drapes were broken down. The patient was gently rolled back onto their hospital bed being careful to maintain their cervical spine and good neutral alignment and position. They were woken up by anesthesia, extubated, and brought to the recovery room in good stable condition. The patient will be admitted to the hospital for appropriate postoperative care, medical management and monitoring. We will continue to follow them closely about the postoperative course.
--- NOTE | 2023-12-12 13:34 | CDI ---
Documentation Clarification Form Date: 12/12/2023 12:28:38 PM From: Merissa Townsend RN, CCDS Phone: [phone] Admit Date: 11/10/2023 09:23:00 AM Patient Name: Mor Cabrera Visit Number: [id number] Discharge Date: 11/16/2023 02:17:00 PM ATTENTION: The Clinical Documentation Specialists (CDI) and [facility] Coding Staff appreciate your assistance in clarifying documentation. Please respond to the clarification below the line at the bottom and electronically sign. The CDI & [facility] Coding staff will review the response and follow-up if needed. Please note: Queries are made part of the Legal Health Record. If you have any questions, please contact the author of this message via ITS. Doctor Tylor Ash Postop Hypotension is documented in the progress notes. Additional clarification regarding this diagnosis is requested. History/Risk Factors: Severe spinal stenosis L3-4 L4-5 L5-S1, degenerative disc disease L3-4 L4-5 L5- S1, neurogenic claudication, lower extremity radiculopathy, low back pain, facet arthrosis. S/P laminectomy and decompression. Open Posterior lateral decompression and fusion L3-4 L4-5 L5-S1 on 11/07. Clinical Indicators: 11/07 @1230 Nursing: "Patient out of OR at 1207, at 1230 patient's pressure dropped. patient was dizzy, lethargic and diaphoretic. Pressure was 76/48, HR 64. RN called anesthesia. 0.2 of Robinul was ordered. Patient's pressure came up." 11/07 @1400 Nursing: " Anesthesia came by to assess again. BP still borderline low. Albumin ordered and given at bedside." 11/07 @1451 Nursing: " Patient BP came up after albumin." 11/09 IM: "Postop hypotension resolved." 11/14 Ortho: "Postop hypotension resolved." 11/07 VS: BP 76/48-98/62 11/08 VS: BP 105/62 11/09 VS: BP 139/66-093-80-94/51 Treatment: Robinul 0.2mg on 11/07; Albumin on 11/07 Is the hypotension a complication of the surgical procedure [ ] Yes [ ] No [ ] Other Condition, please specify [ ] Unable to determine MTDD
--- NOTE | 2023-12-12 13:50 | CDI ---
Documentation Clarification Form Date: 12/12/2023 01:34:49 PM From: Merissa Townsend RN, CCDS Phone: [phone] Admit Date: 11/10/2023 09:23:00 AM Patient Name: Mor Cabrera Visit Number: [id number] Discharge Date: 11/16/2023 02:17:00 PM ATTENTION: The Clinical Documentation Specialists (CDI) and [facility] Coding Staff appreciate your assistance in clarifying documentation. Please respond to the clarification below the line at the bottom and electronically sign. The CDI & [facility] Coding staff will review the response and follow-up if needed. Please note: Queries are made part of the Legal Health Record. If you have any questions, please contact the author of this message via ITS. Kyara Little NP Possible UTI due to daniels is documented in the progress notes. Additional clarification regarding the etiology of the UTI is requested. History/Risk Factors: BPH, severe spinal stenosis L3-4 L4-5 L5-S1, degenerative disc disease L3-4 L4-5 L5- S1, neurogenic claudication, lower extremity radiculopathy, low back pain, facet arthrosis. S/P laminectomy and decompression. Open Posterior lateral decompression and fusion L3-4 L4-5 L5-S1 on 11/07. Clinical Indicators: 11/11 Ortho: "s/p Daniels due to retention. Possible UTI." 11/12 IM: "UA +leukocytes, + blood. Possible UTI due to Daniels. Daniels removed today, continue trial void and continue Flomax." 11/14 IM: "Possible acute UTI due to Daniels." 11/15 IM: "Urinary retention requiring Daniels. F/U with Urology, continue with Daniles on D/C." 11/11 Urinalysis: +blood, large leukocytes Treatment: IV Rocephin 1gm Q24H 11/11-11/15 Please clarify the etiology of the UTI, if known: [x ] Daniels catheter [ ] UTI not related to catheter [ ] Other condition, please specify [ ] Unable to determine MTDD
--- NOTE | 2023-12-14 10:42 | CDI ---
Documentation Clarification Form Date: 12/12/2023 12:28:00 PM From: Merissa Townsend RN, CCDS Phone: [phone] Admit Date: 11/10/2023 09:23:00 AM Patient Name: Mor Cabrera Visit Number: [id number] Discharge Date: 11/16/2023 02:17:00 PM ATTENTION: The Clinical Documentation Specialists (CDI) and [facility] Coding Staff appreciate your assistance in clarifying documentation. Please respond to the clarification below the line at the bottom and electronically sign. The CDI & [facility] Coding staff will review the response and follow-up if needed. Please note: Queries are made part of the Legal Health Record. If you have any questions, please contact the author of this message via ITS. Danny ZULUAGA, Postop Hypotension is documented in the progress notes. Additional clarification regarding this diagnosis is requested. History/Risk Factors: Severe spinal stenosis L3-4 L4-5 L5-S1, degenerative disc disease L3-4 L4-5 L5- S1, neurogenic claudication, lower extremity radiculopathy, low back pain, facet arthrosis. S/P laminectomy and decompression. Open Posterior lateral decompression and fusion L3-4 L4-5 L5-S1 on 11/07. Clinical Indicators: 11/07 @1230 Nursing: "Patient out of OR at 1207, at 1230 patient's pressure dropped. patient was dizzy, lethargic and diaphoretic. Pressure was 76/48, HR 64. RN called anesthesia. 0.2 of Robinul was ordered. Patient's pressure came up." 11/07 @1400 Nursing: Anesthesia came by to assess again. BP still borderline low. Albumin ordered and given at bedside." 11/07 @1451 Nursing: Patient BP came up after Albumin." 11/09 IM: "Postop hypotension resolved." 11/14 Ortho: "Postop hypotension resolved." 11/07 VS: BP 76/48-98/62 11/08 VS: BP 105/62 11/09 VS: BP 139/62-264-88-94/51 Treatment: Robinul 0.2mg on 11/07; Albumin on 11/07 Was the hypotension a complication of the surgical procedure [ ] Yes [ x ] No [ ] Other Condition, please specify [ ] Unable to determine MTDD
--- NOTE | 2023-12-15 14:11 | XR ---
Patient Mor Cabrera ID [id number] EXAMINATION TYPE: XR chest 1V DATE OF EXAM: 11/12/2023 12:45 PM CLINICAL INDICATION: Low O2 Sat COMPARISON: THIS EXAM WAS READ DURING PACS DOWNTIME, NO PRIORS AVAILABLE. TECHNIQUE: XR chest 1V Frontal view of the chest. FINDINGS: Lungs/Pleura: Bibasilar atelectasis. No evidence for pneumothorax, pleural effusion or focal consolid ation. Pulmonary vascularity: Unremarkable. Heart/mediastinum: Cardiomediastinal silhouette is prominent in size. Musculoskeletal: No acute osseous pathology. IMPRESSION: No acute cardiopulmonary disease/process.
== END 2023-11-16 14:17 | disposition home health service (06) | DRG 455 ==
LOC: OR 08:00 → DISRECOVER 09:23
PROVIDERS: ADMIT Orthopaedic Surgery Orthopaedic Surgery of the Spine; ATTEND Orthopaedic Surgery Orthopaedic Surgery of the Spine
PROC: 0SG1071 Fusion of 2 or more Lumbar Vertebral Joints with Autologous Tissue Substitute, Posterior Approach, Posterior Column, Open Approach (ICD-10-PCS; 2023-11-08)
PROC: 0SG30AJ Fusion of Lumbosacral Joint with Interbody Fusion Device, Posterior Approach, Anterior Column, Open Approach (ICD-10-PCS; 2023-11-08)
PROC: 0SG3071 Fusion of Lumbosacral Joint with Autologous Tissue Substitute, Posterior Approach, Posterior Column, Open Approach (ICD-10-PCS; 2023-11-08)
PROC: 01NB0ZZ Release Lumbar Nerve, Open Approach (ICD-10-PCS; 2023-11-08)
PROC: 01NR0ZZ Release Sacral Nerve, Open Approach (ICD-10-PCS; 2023-11-08)
PROC: 30233H0 Transfusion of Autologous Whole Blood into Peripheral Vein, Percutaneous Approach (ICD-10-PCS; 2023-11-08)
PROC: 30233J1 Transfusion of Nonautologous Serum Albumin into Peripheral Vein, Percutaneous Approach (ICD-10-PCS; 2023-11-08)
PROC: 0SG10AJ Fusion of 2 or more Lumbar Vertebral Joints with Interbody Fusion Device, Posterior Approach, Anterior Column, Open Approach (ICD-10-PCS; principal; 2023-11-08 07:30)
DX: M47.26 Other spondylosis with radiculopathy, lumbar region (principal); T83.511A Infection and inflammatory reaction due to indwelling urethral catheter, initial encounter; N39.0 Urinary tract infection, site not specified; I95.9 Hypotension, unspecified; G47.33 Obstructive sleep apnea (adult) (pediatric); M48.062 Spinal stenosis, lumbar region with neurogenic claudication; M51.16 Intervertebral disc disorders with radiculopathy, lumbar region; H91.90 Unspecified hearing loss, unspecified ear; N40.1 Benign prostatic hyperplasia with lower urinary tract symptoms; R33.8 Other retention of urine; R53.81 Other malaise; Y73.1 Therapeutic (nonsurgical) and rehabilitative gastroenterology and urology devices associated with adverse incidents; Z96.651 Presence of right artificial knee joint; Z98.1 Arthrodesis status; Z79.82 Long term (current) use of aspirin; Z79.899 Other long term (current) drug therapy
CPT/HCPCS: 85027